=== PATIENT | female | born 1990 | race Caucasian/White ===

== ENCOUNTER 2017-05-18 19:59 | Emergency (ER) | payer OTHER ==
[~2017-05-18] VITALS: Ht 165.1 cm; Wt 59.9 kg
[~2017-05-18 19:59] MED LIST: DICY20TA3 PO; DOXY100T PO; FAMO-63 PO; ONDA4TAB12 PO; VENL37.5 PO
--- NOTE | 2017-05-18 20:24 | ED.ADGEN ---
Past History Past Medical History: Asthma, Depression, Ovarian Cyst, Other Past Surgical History: , Other Smoking: Cigarettes, Less than 1pk/day Alcohol Use: Occasionally Drug Use: None Adult General Chief Complaint Chief Complaint " I was at work and got this severe Rt. abd. pain.. I am about 6 weeks ... My 4th.. I have not seen my Dr. Rivers yet.. It s Dr. Wallis.."" I ve been having pain for while... but it got really bad after eating at 5 ( pm) today...' the pain really bad about 7 (1900).." HPI HPI Patient is a 26 year old female who presents with above hx and complaints of Rt. abd. Pain pain is reproducible with movement and rebound. Patient not yet on prenatals. No previous history of miscarriage. 3 previous C-sections. Patient did eat dinner tonight consistent with Pint Pleaseddar cheese noodles. Patient normally works at this [employer] post at [employer]. No history of previous STD. No history of vaginal discharge. Patient thinks her blood type is O+. Some complaints of dysuria. Has had 2 previous urinary tract infection. No change in stool s. No history of travel, trauma or specific ill contacts. Patient does smoke. Review of Systems Review of Systems Constitutional: Denies fever or chills [] Eyes: Denies change in visual acuity, redness, or eye pain [] HENT: Denies nasal congestion or sore throat [] Respiratory: Denies cough or shortness of breath [] Cardiovascular: No additional information not addressed in HPI [] GI: Complaints of abdominal pain, nausea, . Denies vomiting, bloody stools or diarrhea [] Rt. lower quadrant. : Denies dysuria or hematuria [] Musculoskeletal: Denies back pain or joint pain [] Integument: Denies rash or skin lesions [] Neurologic: Denies headache, focal weakness or sensory changes [] Endocrine: Denies polyuria or polydipsia [] Family History Family History Non- contributory Current Medications Current Medications Current Medications Medications (Trade) Dose Ordered Sig/Kirk Start Time Stop Time Status Last Admin Dose Admin Famotidine (Pepcid) 20 mg 1X ONCE 05/18/17 21:00 05/18/17 21:01 DC 05/18/17 21:55 20 MG Lactated Ringer's 1,000 ml @ 1,000 mls/hr Q1H 05/18/17 20:30 05/18/17 21:55 DC 05/18/17 21:53 1,000 MLS/HR Morphine Sulfate (Morphine 2mg Syringe) 2 mg STK-MED ONCE 05/18/17 22:45 05/18/17 22:46 DC Morphine Sulfate (Morphine 4mg Syringe) 4 mg 1X ONCE 05/18/17 23:00 05/18/17 23:01 DC 05/18/17 23:00 4 MG Ondansetron HCl (Zofran) 4 mg 1X ONCE 05/18/17 21:00 05/18/17 21:01 DC 05/18/17 21:54 4 MG See nursing for home meds Allergies Allergies Allergies Coded Allergies Type Severity Reaction Last Updated Verified No Known Drug Allergies 01/07/14 No Physical Exam Physical Exam Constitutional: Well developed, well nourished, in acute pain and emotional distress, non-toxic appearance. [] HENT: Normocephalic, atraumatic, bilateral external ears normal, oropharynx moist, no oral exudates, nose normal. [] Eyes: PERRLA, EOMI, conjunctiva normal, no discharge. [] Neck: Normal range of motion, no tenderness, supple, no stridor. [] Cardiovascular:Heart rate regular rhythm, no murmur [] Lungs & Thorax: Bilateral breath sounds clear to auscultation [] Abdomen: Bowel sounds decreased,, soft, right mid abdomen tenderness, no masses , no pulsatile masses. [] Umbilicus hernia , Mild psoas or obturator sign on RT. Old C- section scar. Vaginal- os close, no bleeding. Rt. adnexal tenderness. Skin: Warm, dry, no erythema, no rash. [] Back: No tenderness, no CVA tenderness. [] Extremities: No tenderness, no cyanosis, no clubbing, ROM intact, no edema. [] Bilateral psoas. Neurologic: Alert and oriented X 3, normal motor function, normal sensory function, no focal deficits noted. [] Psychologic: Affect tearful and anxious, judgement normal, mood depressed Current Patient Data Vital Signs Vital Signs Date Time Temp Pulse Resp B/P (MAP) Pulse Ox O2 Delivery O2 Flow Rate FiO2 05/18/17 23:00 98.1 104 20 143/84 (103) 100 Room Air Lab Results Laboratory Tests Test 05/18/17 20:15 05/18/17 20:34 05/18/17 20:45 Urine Collection Type Unknown Urine Color Straw Urine Clarity Hazy Urine pH 7.0 Urine Specific [place] 1.015 Urine Protein Neg (NEG-TRACE) Urine Glucose (UA) Neg mg/dL (NEG) Urine Ketones (Stick) Neg mg/dL (NEG) Urine Blood Trace (NEG) Urine Nitrite Neg (NEG) Urine Bilirubin Neg (NEG) Urine Urobilinogen Dipstick 0.2 mg/dL (0.2 mg/dL) Urine Leukocyte Esterase Neg (NEG) Urine RBC Rare /HPF (0-2) Urine WBC 0 /HPF (0-4) Urine Squamous Epithelial Cells Occ /LPF Urine Amorphous Sediment Present /HPF Urine Bacteria 0 /HPF (0-FEW) Urine Opiates Screen Neg (NEG) Urine Methadone Screen Neg (NEG) Urine Barbiturates Neg (NEG) Urine Phencyclidine Screen Neg (NEG) Urine Amphetamine/Methamphetamine Neg (NEG) Urine Benzodiazepines Screen Neg (NEG) Urine Cocaine Screen Neg (NEG) Urine Cannabinoids Screen Neg (NEG) Urine Ethyl Alcohol Neg (NEG) POC Urine HCG, Qualitative hcg positive (Negative) White Blood Count 8.1 x10^3/uL (4.0-11.0) Red Blood Count 3.75 x10^6/uL (3.50-5.40) Hemoglobin 11.5 g/dL (12.0-15.5) L Hematocrit 33.5 % (36.0-47.0) L Mean Corpuscular Volume 90 fL (79-100) Mean Corpuscular Hemoglobin 31 pg (25-35) Mean Corpuscular Hemoglobin Concent 34 g/dL (31-37) Red Cell Distribution Width 14.0 % (11.5-14.5) Platelet Count 252 x10^3/uL (140-400) Neutrophils (%) (Auto) 61 % (31-73) Lymphocytes (%) (Auto) 30 % (24-48) Monocytes (%) (Auto) 6 % (0-9) Eosinophils (%) (Auto) 2 % (0-3) Basophils (%) (Auto) 0 % (0-3) Neutrophils # (Auto) 5.0 x10^3uL (1.8-7.7) Lymphocytes # (Auto) 2.4 x10^3/uL (1.0-4.8) Monocytes # (Auto) 0.5 x10^3/uL (0.0-1.1) Eosinophils # (Auto) 0.2 x10^3/uL (0.0-0.7) Basophils # (Auto) 0.0 x10^3/uL (0.0-0.2) Prothrombin Time 12.0 SEC (9.4-11.4) H Prothrombin Time INR 1.2 (0.9-1.1) H PTT 26 SEC (23-33) Maternal Serum HCG Beta Subunit 7872 mIU/mL (0-6) H Sodium Level 138 mmol/L (136-145) Potassium Level 3.4 mmol/L (3.5-5.1) L Chloride Level 103 mmol/L (98-107) Carbon Dioxide Level 26 mmol/L (21-32) Anion Gap 9 (6-14) Blood Urea Nitrogen 14 mg/dL (7-20) Creatinine 0.7 mg/dL (0.6-1.0) Estimated GFR (Cockcroft-Gault) 101.1 BUN/Creatinine Ratio 20 (6-20) Glucose Level 96 mg/dL (70-99) Calcium Level 9.1 mg/dL (8.5-10.1) Total Bilirubin 0.3 mg/dL (0.2-1.0) Direct Bilirubin 0.1 mg/dL (0.0-0.2) Aspartate Amino Transferase (AST) 15 U/L (15-37) Alanine Aminotransferase (ALT) 19 U/L (14-59) Alkaline Phosphatase 71 U/L (46-116) Total Protein 7.5 g/dL (6.4-8.2) Albumin 3.9 g/dL (3.4-5.0) Albumin/Globulin Ratio 1.1 (1.0-1.7) Lipase 148 U/L (73-393) Microbiology 05/18/17 Wet Prep - Final, Complete Microbiology 05/18/17 Wet Prep - Final, Complete EKG EKG [] Radiology/Procedures Radiology/Procedures US - preliminary= fluid and debris and pelvis. No embryo gestational sac or intrauterine findings of appears to be in possible ruptured ectopic [] Course & Med Decision Making Course & Med Decision Making Pertinent Labs and Imaging studies reviewed. (See chart for details). Discussed presentation, testing with Dr. Bland- advised would not accept pt in transfer until seen in ED. Wants ED to ED transfer. Call placed to Dr. Moon ED [facility]- Advise will accept pt. pending Dr. Bland eval. Surgery team to be notified. Dr. Graf hospitalist will accept pt. for admit with Edwina consult. [] Final Impression Final Impression 1. Abdomen pain[]Rt. Lower Quadrant 2. Anemia 3. Suspected Ruptured Ectopic - 4. Elevated BHCG- 7,872- No IUP detected on US Problems: Dragon Disclaimer Dragon Disclaimer This electronic medical record was generated, in whole or in part, using a voice recognition dictation system. MED YAN MD May 18, 2017 20:24
[2017-05-18] MEDS ORDERED: MORPHINE SULFATE 2 MG/ML DISP.SYRIN. IV/SQ PRN (20:30)
[2017-05-18] MEDS ORDERED: IV RINGERS SOLUTION,LACTATED 1,000 ML IV SCH (20:30)
[2017-05-18 20:46] LABS: BARBITURATES NEG (NEG); BENZODIAZEPINES NEG (NEG); CANNABINOIDS NEG (NEG); COCAINE NEG (NEG); METHADONE NEG (NEG); OPIATES NEG (NEG); PHENCYCLIDINE NEG (NEG)
[2017-05-18 20:47] LABS: AMPHETAMINE/METHAMPHETAMINE NEG (NEG)
[2017-05-18 21:00] LABS: AMORPHOUS SEDIMENT,UR PRESENT /HPF; BACTERIA,URINE 0 /HPF (0-FEW); BILIRUBIN,URINE NEG (NEG); CLARITY,URINE HAZY; COLOR,URINE STRAW; GLUCOSE,URINE NEG (NEG); NITRITE,URINE NEG (NEG); RBC,URINE RARE /HPF (0-2); SQUAMOUS EPITHELIAL CELL,UR OCC /LPF; UROBILINOGEN,URINE 0.2 mg/dL (0.2 mg/dL); WBC,URINE 0 /HPF (0-4)
[2017-05-18] MEDS ORDERED: FAMOTIDINE 20 MG/2 ML VIAL IVP ONE (21:00)
[2017-05-18] MEDS ORDERED: ONDANSETRON PF 4 MG/2 ML VIAL. IV ONE (21:00)
[2017-05-18 21:08] LABS: BASO % 0 % (0-3); EOS # 0.2 x10^3/uL (0.0-0.7); EOS % 2 % (0-3); HEMATOCRIT 33.5 % (36.0-47.0); HEMOGLOBIN 11.5 g/dL (12.0-15.5); LYMPH # 2.4 x10^3/uL (1.0-4.8); LYMPH % 30 % (24-48); MEAN CORPUSCULAR HEMOGLOBIN 31 pg (25-35); MEAN CORPUSCULAR HGB CONC 34 g/dL (31-37); MEAN CORPUSCULAR VOLUME 90 fL (79-100); MONO # 0.5 x10^3/uL (0.0-1.1); MONO % 6 % (0-9); NEUT % 61 % (31-73); PLATELET COUNT 252 x10^3/uL (140-400); RED BLOOD COUNT 3.75 x10^6/uL (3.50-5.40); WHITE BLOOD COUNT 8.1 x10^3/uL (4.0-11.0)
[2017-05-18 21:23] LABS: ALBUMIN 3.9 g/dL (3.4-5.0); ALBUMIN/GLOBULIN RATIO 1.1 (1.0-1.7); CALCIUM 9.1 mg/dL (8.5-10.1); CREATININE 0.7 mg/dL (0.6-1.0); DIRECT BILIRUBIN 0.1 mg/dL (0.0-0.2); GFR 101.1; POTASSIUM 3.4 mmol/L (3.5-5.1); TOTAL BILIRUBIN 0.3 mg/dL (0.2-1.0); TOTAL PROTEIN 7.5 g/dL (6.4-8.2)
[2017-05-18] MEDS ORDERED: MORPHINE SULFATE 2 MG/ML DISP.SYRIN. ONE (22:45)
--- NOTE | 2017-05-18 22:45 | RAD ---
Complete abdominal ultrasound History: Abdominal pain, . Comparison: None. Procedure: Transabdominal ultrasound images are obtained. Findings: Visualized pancreas is unremarkable. Liver is normal in echogenicity. No focal hepatic masses are identified. Right lobe of the liver measures 14.9 cm. Gallbladder is without evidence of stone or inflammation. Gallbladder demonstrates small polyp measuring 4 mm. Common bile duct measures normally at 3 mm in diameter. Spleen is homogeneous and measures 10.1 cm in length. Right kidney measures 11.6 cm in length. Right kidney is without evidence of obstruction or stone. Left kidney measures 12.0 cm in length. Left kidney is without evidence of obstruction or stone. Visualized portions of the aorta and IVC have normal caliber. Impression: 1. Gallbladder polyp. Otherwise, unremarkable abdominal ultrasound. Electronically signed by: Raudel Murray MD (05/18/2017 10:42 PM) [facility]
--- NOTE | 2017-05-18 22:56 | RAD ---
Early OB ultrasound History: Abdominal pain. Beta hCG levels are not available at time of dictation. Comparison: None. Technique: Endovaginal imaging was performed . Findings: No intrauterine is identified. Uterus measures 9 cm in length. Endometrial thickness measures about 10 mm. The left ovary is identified demonstrates small follicle. Left ovary measures 4.2 x 2.4 x 3.9 cm. Left ovary demonstrates normal vascular flow upon Doppler interrogation is without distortion. There is a large amount of complex fluid in the pelvis, worrisome for hemorrhage. There appears to be a large focus of echogenic material asymmetric to the right hemipelvis, probably representing organized hemorrhage product. Constellation of findings are worrisome for ruptured ectopic . Impression: 1. Large amount of hemorrhage is seen in the pelvis with more organized hemorrhage product suspected in the right hemipelvis. Findings are very worrisome for ruptured ectopic . 2. Results were discussed with emergency department staff, Dr. Salcido, at 2252 hours. Electronically signed by: Raudel Murray MD (05/18/2017 10:53 PM) [facility]
[2017-05-18 23:00] VITALS: BP 143/84
[2017-05-18] MEDS ORDERED: MORPHINE SULFATE 4 MG/ML DISP.SYRIN. IV ONE (23:00)
[2017-05-21 14:13] LABS: HCV ANTIBODY <0.1 s/co ratio (0.0-0.9); HEP A IGM ABDY Negative (Negative)
[2017-05-22 18:09] LABS: CHLAMYDIA PROBE Negative (Negative)
== END 2017-05-18 23:39 | disposition short-term general hospital (02) ==
LOC: ER 19:59
DX: O26.892 Other specified pregnancy related conditions, second trimester (principal); R10.31 Right lower quadrant pain; O99.011 Anemia complicating pregnancy, first trimester; O99.511 Diseases of the respiratory system complicating pregnancy, first trimester; O99.341 Other mental disorders complicating pregnancy, first trimester; O99.331 Smoking (tobacco) complicating pregnancy, first trimester; J45.909 Unspecified asthma, uncomplicated; F32.9 Major depressive disorder, single episode, unspecified; Z98.890 Other specified postprocedural states; Z3A.01 Less than 8 weeks gestation of pregnancy
CPT/HCPCS: 36415; 76700; 76805; 76817; 80053; 80074; 80076; 80307; 81001; 81025; 83690; 84702; 85025; 85610; 85730; 86900; 86901; 96361; 96374; 96375; 96376; 99285; J2270; J2405; J7120; Q0111; S0028; 87491; 87591; G0479

== ENCOUNTER 2017-11-05 21:19 | Emergency (ER) | payer OTHER ==
[~2017-11-05] VITALS: Ht 165.1 cm; Wt 69.0 kg
[2017-11-05 22:54] LABS: BASO # 0.1 x10^3/uL (0.0-0.2); BASO % 1 % (0-3); EOS # 0.2 x10^3/uL (0.0-0.7); EOS % 3 % (0-3); HEMOGLOBIN 12.5 g/dL (12.0-15.5); LYMPH # 2.7 x10^3/uL (1.0-4.8); LYMPH % 33 % (24-48); MEAN CORPUSCULAR HEMOGLOBIN 28 pg (25-35); MEAN CORPUSCULAR HGB CONC 33 g/dL (31-37); MEAN CORPUSCULAR VOLUME 84 fL (79-100); MONO # 0.5 x10^3/uL (0.0-1.1); MONO % 6 % (0-9); NEUT # 4.7 x10^3uL (1.8-7.7); NEUT % 58 % (31-73); PLATELET COUNT 269 x10^3/uL (140-400); RED BLOOD COUNT 4.51 x10^6/uL (3.50-5.40); RED CELL DISTRIBUTION WIDTH 17.3 % (11.5-14.5); WHITE BLOOD COUNT 8.1 x10^3/uL (4.0-11.0)
[2017-11-05 23:07] LABS: PREG TEST PT QUAL NEGATIVE (NEG)
[2017-11-05 23:09] LABS: ALBUMIN 3.9 g/dL (3.4-5.0); CALCIUM 9.5 mg/dL (8.5-10.1); CREATININE 0.7 mg/dL (0.6-1.0); GFR 100.4; POTASSIUM 3.3 mmol/L (3.5-5.1); TOTAL BILIRUBIN 0.2 mg/dL (0.2-1.0); TOTAL PROTEIN 7.8 g/dL (6.4-8.2)
[2017-11-05 23:09] LABS: BACTERIA,URINE 0 /HPF (0-FEW); BILIRUBIN,URINE NEG (NEG); CLARITY,URINE CLEAR; COLOR,URINE YELLOW; GLUCOSE,URINE NEG (NEG); NITRITE,URINE NEG (NEG); RBC,URINE 0 /HPF (0-2); SQUAMOUS EPITHELIAL CELL,UR OCC /LPF; UROBILINOGEN,URINE 0.2 mg/dL (0.2 mg/dL); WBC,URINE RARE /HPF (0-4)
--- NOTE | 2017-11-05 23:40 | ED.ADGEN ---
Past History Past Medical History: Asthma, Depression, Ovarian Cyst, Other Past Surgical History: , Other Smoking: Cigarettes, Less than 1pk/day Alcohol Use: Occasionally Drug Use: None Adult General Chief Complaint Chief Complaint Abdominal pain HPI HPI Patient is a 27-year-old female presents with episodic daily abdominal pain for the past several weeks. Symptoms lasted 5-10 minutes at a time and are not associated with eating. Pain is described as dull colicky pain located in the periumbilical area which migrates below the diaphragms. Pain is not worse with position change, eating and resolves spontaneously. Patient currently reports dull and low-grade pain. Associated with mild nausea and no vomiting, reports normal bowel movements with occasional diarrhea and watery stools. Patient has been taken ibuprofen with limited relief. Does report history of umbilical hernia but states she can tell when it popped out. Also has had previous ovarian cysts and recent ectopic with right oophorectomy several months ago. Currently on Depo-Provera. No urinary frequency urgency, dysuria. No hematuria or flank pain. Evaluate twice by her PCP in the past month and prescribed antibiotics and I Mucinex and steroids. Completed steroids 2 weeks ago. Patient states she was treated for sinus infection and postnasal drip. Patient denies other symptoms or complaints.[] Review of Systems Review of Systems ROS as per HPI. All other ROS are negative [] All other systems were reviewed and found to be within normal limits, except as documented in this note. Allergies Allergies Allergies Coded Allergies Type Severity Reaction Last Updated Verified No Known Drug Allergies 01/07/14 No Physical Exam Physical Exam Constitutional: Well developed, well nourished, no acute distress, non-toxic appearance. [] HENT: Normocephalic, atraumatic, bilateral external ears normal, oropharynx moist, no oral exudates, nose normal. [] Eyes: PERRLA, EOMI, conjunctiva normal. [] Neck: Normal range of motion, no tenderness. [] Cardiovascular:Heart rate regular rhythm, no murmur. [] Lungs & Thorax: Bilateral breath sounds clear to auscultation. [] Abdomen: Bowel sounds normal, soft, no tenderness. [] Skin: Warm, dry. [] Back: No tenderness. [] Extremities: No tenderness. [] Neurologic: Alert and oriented X 3, normal motor function, normal sensory function, no focal deficits noted. [] Psychologic: Affect normal, judgement normal, mood normal. [] Current Patient Data Lab Results Laboratory Tests Test 11/05/17 21:47 11/05/17 22:25 11/05/17 22:35 POC Urine HCG, Qualitative hcg negative (Negative) Urine Collection Type Unknown Urine Color Yellow Urine Clarity Clear Urine pH 5.5 Urine Specific [place] 1.025 Urine Protein Trace (NEG-TRACE) Urine Glucose (UA) Neg mg/dL (NEG) Urine Ketones (Stick) Trace mg/dL (NEG) Urine Blood Neg (NEG) Urine Nitrite Neg (NEG) Urine Bilirubin Neg (NEG) Urine Urobilinogen Dipstick 0.2 mg/dL (0.2 mg/dL) Urine Leukocyte Esterase Neg (NEG) Urine RBC 0 /HPF (0-2) Urine WBC Rare /HPF (0-4) Urine Squamous Epithelial Cells Occ /LPF Urine Bacteria 0 /HPF (0-FEW) White Blood Count 8.1 x10^3/uL (4.0-11.0) Red Blood Count 4.51 x10^6/uL (3.50-5.40) Hemoglobin 12.5 g/dL (12.0-15.5) Hematocrit 38.0 % (36.0-47.0) Mean Corpuscular Volume 84 fL (79-100) Mean Corpuscular Hemoglobin 28 pg (25-35) Mean Corpuscular Hemoglobin Concent 33 g/dL (31-37) Red Cell Distribution Width 17.3 % (11.5-14.5) H Platelet Count 269 x10^3/uL (140-400) Neutrophils (%) (Auto) 58 % (31-73) Lymphocytes (%) (Auto) 33 % (24-48) Monocytes (%) (Auto) 6 % (0-9) Eosinophils (%) (Auto) 3 % (0-3) Basophils (%) (Auto) 1 % (0-3) Neutrophils # (Auto) 4.7 x10^3uL (1.8-7.7) Lymphocytes # (Auto) 2.7 x10^3/uL (1.0-4.8) Monocytes # (Auto) 0.5 x10^3/uL (0.0-1.1) Eosinophils # (Auto) 0.2 x10^3/uL (0.0-0.7) Basophils # (Auto) 0.1 x10^3/uL (0.0-0.2) Sodium Level 140 mmol/L (136-145) Potassium Level 3.3 mmol/L (3.5-5.1) L Chloride Level 104 mmol/L (98-107) Carbon Dioxide Level 23 mmol/L (21-32) Anion Gap 13 (6-14) Blood Urea Nitrogen 10 mg/dL (7-20) Creatinine 0.7 mg/dL (0.6-1.0) Estimated GFR (Cockcroft-Gault) 100.4 BUN/Creatinine Ratio 14 (6-20) Glucose Level 85 mg/dL (70-99) Calcium Level 9.5 mg/dL (8.5-10.1) Total Bilirubin 0.2 mg/dL (0.2-1.0) Aspartate Amino Transferase (AST) 16 U/L (15-37) Alanine Aminotransferase (ALT) 22 U/L (14-59) Alkaline Phosphatase 84 U/L (46-116) Total Protein 7.8 g/dL (6.4-8.2) Albumin 3.9 g/dL (3.4-5.0) Albumin/Globulin Ratio 1.0 (1.0-1.7) Serum Test, Qualitative Negative (NEG) EKG EKG [] Radiology/Procedures Radiology/Procedures [] Course & Med Decision Making Course & Med Decision Making Pertinent Labs and Imaging studies reviewed. (See chart for details) [Abdomen soft, nonsurgical. No palpable incarcerated hernias. Lab work reviewed and reassuring. We'll prescribe Bentyl recommend supportive care with PCP follow -up for further evaluation. Return precautions reviewed. Patient verbalizes understanding agreement discharge instructions prior to departure.] Final Impression Final Impression [1. Abdominal pain] Problems: Dragon Disclaimer Dragon Disclaimer This electronic medical record was generated, in whole or in part, using a voice recognition dictation system. MESHA GRANDE DO Nov 05, 2017 23:40
[2017-11-05 23:50] VITALS: BP 144/85
== END 2017-11-05 23:54 | disposition home or self-care (01) ==
LOC: ER 21:19
DX: R10.33 Periumbilical pain (principal); R19.7 Diarrhea, unspecified; J45.909 Unspecified asthma, uncomplicated; F32.9 Major depressive disorder, single episode, unspecified; F17.210 Nicotine dependence, cigarettes, uncomplicated; Z90.721 Acquired absence of ovaries, unilateral
CPT/HCPCS: 36415; 80053; 81001; 81025; 84703; 85025; 99284

== ENCOUNTER 2018-04-26 18:33 | Emergency (ER) | payer SELFPAY ==
[~2018-04-26] VITALS: Ht 165.1 cm; Wt 79.0 kg
[2018-04-26] MEDS ORDERED: HYDR-971 PO (19:21)
--- NOTE | 2018-04-26 19:21 | PHYS DOC ---
Past History Past Medical History: Asthma, Depression, Ovarian Cyst, Other Past Surgical History: , Other Smoking: Cigarettes, Less than 1pk/day Alcohol Use: Occasionally Drug Use: None Adult General Chief Complaint Chief Complaint: BACK PAIN OR INJURY HPI HPI Patient is a 27 year old female who presents with complaint of low back pain. The patient states that she has been suffering from recurrent low back pain over the past several weeks. The patient has been following with primary doctor and has been receiving outpatient treatments to help with symptoms. The patient states that she recently reinjured her low back over the past 3 days. Patient states that despite stim treatments and use of her home meds, Flexeril, and ibuprofen, she has not been able to get relief of her symptoms. Patient states that the pain radiates down into both of her legs. Patient denies any saddle anesthesia, loss of bladder or bowel control, or foot drop. Denies any other symptoms. Rates pain a 7 out of 10. Review of Systems Review of Systems Constitutional: Denies fever or chills [] Eyes: Denies change in visual acuity, redness, or eye pain [] HENT: Denies nasal congestion or sore throat [] Respiratory: Denies cough or shortness of breath [] Cardiovascular: Denies chest pain or edema[] GI: Denies abdominal pain, nausea, vomiting, bloody stools or diarrhea [] : Denies dysuria or hematuria [] Musculoskeletal: Back pain[] Integument: Denies rash or skin lesions [] Neurologic: Denies headache, focal weakness or sensory changes [] All other systems were reviewed and found to be within normal limits, except as documented in this note. Allergies Allergies Allergies Coded Allergies Type Severity Reaction Last Updated Verified No Known Drug Allergies 01/07/14 No Physical Exam Physical Exam Constitutional: Alert, afebrile, appears in mild discomfort. [] HENT: Normocephalic, atraumatic, bilateral external ears normal, oropharynx moist, no oral exudates, nose normal. [] Eyes: PERRLA, EOMI, conjunctiva normal, no discharge. [] Neck: Normal range of motion, no tenderness, supple, no stridor. [] Cardiovascular:Heart rate regular rhythm, no murmur [] Lungs & Thorax: Bilateral breath sounds clear to auscultation [] Abdomen: Bowel sounds normal, soft, no tenderness, no masses, no pulsatile masses. [] Skin: Warm, dry, no erythema, no rash. [] Back: No midline tenderness, bilateral lower lumbar paraspinous muscle tenderness to palpation, no flank ecchymosis. [] Extremities: No tenderness, no cyanosis, no clubbing, ROM intact, no edema. [] Neurologic: Alert and oriented X 3, normal motor function, normal sensory function, no focal deficits noted. [] Current Patient Data Lab Results Laboratory Tests Test 04/26/18 18:18 POC Urine HCG, Qualitative hcg negative (Negative) EKG EKG Not performed[] Radiology/Procedures Radiology/Procedures Not performed[] Course & Med Decision Making Course & Med Decision Making Pertinent Labs and Imaging studies reviewed. (See chart for details) Symptoms appear consistent with exacerbation of chronic low back pain. Patient treated with oral hydrocodone. The patient will be provided with a one-time small prescription of hydrocodone to help with breakthrough pain. Advised to follow-up with primary doctor for further evaluation. Recommended return to emergency department for any worsening symptoms. Patient was understanding and in agreement with treatment plan. Dragon Disclaimer Dragon Disclaimer This electronic medical record was generated, in whole or in part, using a voice recognition dictation system. Departure Departure: Impression: Primary Impression: Acute exacerbation of chronic low back pain Disposition: 01 HOME, SELF-CARE Condition: IMPROVED Referrals: ZACARIAS GIBBS MD (PCP) Patient Instructions: Chronic Back Pain Additional Instructions: Follow-up with your primary doctor in the next 3-5 days for reevaluation. Return to the emergency department for any worsening symptoms. Scripts Hydrocodone Bit/Acetaminophen (NORCO 5-325 TABLET) 1 Each Tablet 1-2 TAB PO Q4-6HRS PRN for PAIN, #20 TAB Prov: JANNET OLMBARDO MD 04/26/18 JANNET LOMBARDO MD Apr 26, 2018 19:21
[2018-04-26] MEDS ORDERED: HYDROcodone/APAP 5/325MG 1 TAB TABLET PO ONE (19:30)
[2018-04-26 19:40] VITALS: BP 142/84
== END 2018-04-26 19:42 | disposition home or self-care (01) ==
LOC: ER 18:33
DX: G89.29 Other chronic pain (principal); M54.5 Low back pain; J45.909 Unspecified asthma, uncomplicated; F17.210 Nicotine dependence, cigarettes, uncomplicated; Z98.890 Other specified postprocedural states
CPT/HCPCS: 81025; 99283

== ENCOUNTER → 2018-05-14 | Outpatient (CLI) | payer SELFPAY ==
[2018-04-26 19:40] VITALS: BP 142/84
[~2018-05-14] MED LIST changes: +HYDR-971 PO
[2018-05-14 09:03] LABS: BASO % 1 % (0-3); EOS # 0.3 x10^3/uL (0.0-0.7); EOS % 4 % (0-3); HEMATOCRIT 38.6 % (36.0-47.0); HEMOGLOBIN 13.3 g/dL (12.0-15.5); LYMPH # 2.1 x10^3/uL (1.0-4.8); LYMPH % 27 % (24-48); MEAN CORPUSCULAR HEMOGLOBIN 30 pg (25-35); MEAN CORPUSCULAR HGB CONC 35 g/dL (31-37); MEAN CORPUSCULAR VOLUME 88 fL (79-100); MONO # 0.4 x10^3/uL (0.0-1.1); MONO % 5 % (0-9); NEUT # 4.9 x10^3uL (1.8-7.7); NEUT % 63 % (31-73); PLATELET COUNT 265 x10^3/uL (140-400); RED BLOOD COUNT 4.37 x10^6/uL (3.50-5.40); RED CELL DISTRIBUTION WIDTH 15.2 % (11.5-14.5); WHITE BLOOD COUNT 7.7 x10^3/uL (4.0-11.0)
[2018-05-14 09:17] LABS: ALBUMIN 3.4 g/dL (3.4-5.0); ALBUMIN/GLOBULIN RATIO 0.8 (1.0-1.7); ALK PHOS 75 U/L (46-116); ALT (SGPT) 103 U/L (14-59); ANION GAP 9 (6-14); AST (SGOT) 35 U/L (15-37); BLOOD UREA NITROGEN 12 mg/dL (7-20); BUN/CREATININE RATIO 15 (6-20); CALCIUM 8.9 mg/dL (8.5-10.1); CARBON DIOXIDE 26 mmol/L (21-32); CHLORIDE 104 mmol/L (98-107); CREATININE 0.8 mg/dL (0.6-1.0); GLUCOSE 106 mg/dL (70-99); POTASSIUM 4.1 mmol/L (3.5-5.1); SODIUM 139 mmol/L (136-145); TOTAL BILIRUBIN 0.3 mg/dL (0.2-1.0); TOTAL PROTEIN 7.5 g/dL (6.4-8.2)
[2018-05-14 09:19] LABS: VAL ACID 42 mcg/mL (50-100)
[2018-05-14 13:32] LABS: FREE T4 0.74 ng/dL (0.76-1.46); THYROID STIM HORMONE (TSH) 1.567 uIU/mL (0.358-3.740)
== END | disposition home or self-care (01) ==
LOC: LAB 08:28
PROVIDERS: ATTEND Physician Assistant
DX: Z79.899 Other long term (current) drug therapy (principal)
CPT/HCPCS: 36415; 80053; 80061; 80164; 84439; 84443; 84480; 85025

== ENCOUNTER 2018-07-25 19:27 | Emergency (ER) | payer SELFPAY ==
[~2018-07-25 19:27] MED LIST changes: +HYDR-3165 PO; -HYDR-971 PO
--- NOTE | 2018-07-25 19:30 | ED.ADGEN ---
Past History Past Medical History: Asthma, Depression, Ovarian Cyst, Other Past Surgical History: , Other Smoking: Cigarettes, Less than 1pk/day Alcohol Use: Occasionally Drug Use: None Adult General Chief Complaint Chief Complaint ".. I ve been having diarrhea for two weeks all day long.. ".." Now I am getting cramping..." HPI HPI Patient is a 28 year old female who presents with above hx and complaints of abd. pain and severe cramping at times with multiple stools every day. Pt. denies travel, ill contacts, bad food, or contact with ill animals. Pt. normally healthy. Pt. localizes pain in lower pelvic and roslyn-umbilical. Stools have been brown and loose. Stools at least 4 to 5 per day. Pt. denies trauma. Denies fever and chills. Children did have some upper respiratory cold symptoms. Pt. has been having increased gas passage with stools. Review of Systems Review of Systems Constitutional: Denies fever or chills [] Eyes: Denies change in visual acuity, redness, or eye pain [] HENT: Denies nasal congestion or sore throat [] Respiratory: Denies cough or shortness of breath [] Cardiovascular: No additional information not addressed in HPI [] GI: Complaints of abdominal pain, nausea, and diarrhea [] : Denies dysuria or hematuria [] Musculoskeletal: Denies back pain or joint pain [] Integument: Denies rash or skin lesions [] Neurologic: Denies headache, focal weakness or sensory changes [] Endocrine: Denies polyuria or polydipsia [] All other systems were reviewed and found to be within normal limits, except as documented in this note. Family History Family History Non- contributory Current Medications Current Medications Current Medications Medications (Trade) Dose Ordered Sig/Kirk Start Time Stop Time Status Last Admin Dose Admin Acetaminophen/ Hydrocodone Bitart (Lortab 5/325) 1 tab STK-MED ONCE 07/25/18 20:05 07/25/18 20:07 DC Famotidine (Pepcid) 20 mg 1X ONCE 07/25/18 20:15 07/25/18 20:17 DC 07/25/18 20:13 20 MG Ondansetron HCl (Zofran Odt) 8 mg 1X ONCE 07/25/18 20:15 07/25/18 20:17 DC 07/25/18 20:12 8 MG Oxycodone/ Acetaminophen (Percocet 5/325) 2 tab 1X ONCE 07/25/18 20:15 07/25/18 20:17 DC 07/25/18 20:14 2 TAB Allergies Allergies Allergies Coded Allergies Type Severity Reaction Last Updated Verified No Known Drug Allergies 01/07/14 No Physical Exam Physical Exam Constitutional: Well developed, well nourished, no acute distress, non-toxic appearance. [] HENT: Normocephalic, atraumatic, bilateral external ears normal, oropharynx moist, no oral exudates, nose normal. [] Eyes: PERRLA, EOMI, conjunctiva normal, no discharge. [] Neck: Normal range of motion, no tenderness, supple, no stridor. [] Cardiovascular:Heart rate regular rhythm, no murmur [] Lungs & Thorax: Bilateral breath sounds equal apex with scattered wheezes on auscultation [] Abdomen: Bowel sounds hyperactive soft, lower pelvic tenderness, no masses, no pulsatile masses. No rebound. No psoas. Denies vaginal discharge. Declines rectal exam at this time or pelvic exam. Old and Rt. Ectopic preg. surgery scars. Skin: Warm, dry, no erythema, no rash. [] Back: No tenderness, no CVA tenderness. [] Extremities: No tenderness, no cyanosis, no clubbing, ROM intact, no edema. [] Neurologic: Alert and oriented X 3, normal motor function, normal sensory function, no focal deficits noted. [] Psychologic: Affect anxious, judgement normal, mood normal. [] Current Patient Data Vital Signs Vital Signs Date Time Temp Pulse Resp B/P (MAP) Pulse Ox O2 Delivery O2 Flow Rate FiO2 07/25/18 20:21 86 18 139/80 (99) 97 Room Air 07/25/18 19:35 98.3 Lab Results Laboratory Tests Test 07/25/18 19:48 07/25/18 19:58 Urine Collection Type Unknown Urine Color Yellow Urine Clarity Clear Urine pH 7.0 Urine Specific [place] 1.010 Urine Protein Neg (NEG-TRACE) Urine Glucose (UA) Neg mg/dL (NEG) Urine Ketones (Stick) Neg mg/dL (NEG) Urine Blood Trace (NEG) Urine Nitrite Neg (NEG) Urine Bilirubin Neg (NEG) Urine Urobilinogen Dipstick 0.2 mg/dL (0.2 mg/dL) Urine Leukocyte Esterase Neg (NEG) Urine RBC 1-2 /HPF (0-2) Urine WBC Occ /HPF (0-4) Urine Squamous Epithelial Cells Mod /LPF Urine Bacteria Few /HPF (0-FEW) Urine Opiates Screen Neg (NEG) Urine Methadone Screen Neg (NEG) Urine Barbiturates Neg (NEG) Urine Phencyclidine Screen Neg (NEG) Urine Amphetamine/Methamphetamine Neg (NEG) Urine Benzodiazepines Screen Neg (NEG) Urine Cocaine Screen Neg (NEG) Urine Cannabinoids Screen Neg (NEG) Urine Ethyl Alcohol Neg (NEG) POC Urine HCG, Qualitative hcg negative (Negative) EKG EKG [] Radiology/Procedures Radiology/Procedures [] Course & Med Decision Making Course & Med Decision Making Pertinent Labs and Imaging studies reviewed. (See chart for details) Clear fluid diet only. No solid or milk products x 48 hrs. Tylenol and Ibuprofen for pain. Pepto bismal for diarrhea episodes . Zofran for nausea. Re-exam if no improvement. Follow up culture s with primary. Must stay on clear fluid diet. Vicoprofen for marked discomfort. Must have re-exam if no improvement. [] Final Impression Final Impression 1. Abdomen Pain[] 2. Hx. of Diarrhea x 2 weeks Dragon Disclaimer Dragon Disclaimer This electronic medical record was generated, in whole or in part, using a voice recognition dictation system. Dragon Disclaimer This chart was dictated in whole or in part using Voice Recognition software in a busy, high-work load, and often noisy Emergency Department environment. It may contain unintended and wholly unrecognized errors or omissions. Discharge Summary Visit Information: Final Diagnosis Problems Medical Problems: (1) Diarrhea Status: Acute (2) Gastroenteritis Status: Acute (3) Pain in the abdomen Status: Acute Brief Hospital Course: Allergies: Allergies Coded Allergies Type Severity Reaction Last Updated Verified No Known Drug Allergies 01/07/14 No Vital Signs: Vital Signs Date Time Temp Pulse Resp B/P (MAP) Pulse Ox O2 Delivery O2 Flow Rate FiO2 07/25/18 20:21 86 18 139/80 (99) 97 Room Air 07/25/18 19:35 98.3 Lab Results: Laboratory Tests Test 07/25/18 19:48 07/25/18 19:58 Urine Collection Type Unknown Urine Color Yellow Urine Clarity Clear Urine pH 7.0 Urine Specific [place] 1.010 Urine Protein Neg (NEG-TRACE) Urine Glucose (UA) Neg mg/dL (NEG) Urine Ketones (Stick) Neg mg/dL (NEG) Urine Blood Trace (NEG) Urine Nitrite Neg (NEG) Urine Bilirubin Neg (NEG) Urine Urobilinogen Dipstick 0.2 mg/dL (0.2 mg/dL) Urine Leukocyte Esterase Neg (NEG) Urine RBC 1-2 /HPF (0-2) Urine WBC Occ /HPF (0-4) Urine Squamous Epithelial Cells Mod /LPF Urine Bacteria Few /HPF (0-FEW) Urine Opiates Screen Neg (NEG) Urine Methadone Screen Neg (NEG) Urine Barbiturates Neg (NEG) Urine Phencyclidine Screen Neg (NEG) Urine Amphetamine/Methamphetamine Neg (NEG) Urine Benzodiazepines Screen Neg (NEG) Urine Cocaine Screen Neg (NEG) Urine Cannabinoids Screen Neg (NEG) Urine Ethyl Alcohol Neg (NEG) Bedside Urine HCG, Qualitative hcg negative (Negative) PE: Gen.: Alert, pleasant, no apparent distress HEENT: Normocephalic atraumatic, PERRLA EOMI, no scleral icterus, oral mucosa pink and moist Neck: Supple, no lymphadenopathy, nontender Cardiovascular: Normal S1 and S2 no murmurs Pulmonary: Lungs are clear bilaterally with good air movement no respiratory distress Abdomen: Soft nontender non-distended, bowel sounds present no masses Extremities: No clubbing, cyanosis or edema Neuro: Alert and oriented 3, cranial nerves II through XII grossly intact, no lateralizing neuro deficits Skin: Warm, dry Brief Hospital Course: Ms. Roman is a 28 old [female] who presented with abd. pain and diarrhea Discharge Information: Condition at Discharge: Stable Disposition/Orders: D/C to Home Home Meds: Active Scripts Ondansetron Hcl (ZOFRAN) 8 Mg Tablet, 8 MG PO QIDPRN PRN for NAUSEA/VOMITING, # 30 TAB Prov:MED YAN MD 07/25/18 Hydrocodone/Ibuprofen (HYDROCODONE-IBUPROFEN 7.5-200 ) 1 Each Tablet, 1 TAB PO PRN Q6HRS PRN for PAIN, #30 TAB 0 Refills Prov:MED YAN MD 07/25/18 Hydrocodone Bit/Acetaminophen (NORCO 5-325 TABLET) 1 Each Tablet, 1-2 TAB PO Q4- 6HRS PRN for PAIN, #20 TAB Prov:JANNET LOMBARDO MD 04/26/18 Dicyclomine Hcl (DICYCLOMINE HCL) 20 Mg Tablet, 1 TAB PO QID PRN for abdominal cramps, nausea, #20 TAB Prov:AYAD SALGUERO MD 05/23/15 Doxycycline Hyclate (DOXYCYCLINE HYCLATE) 100 Mg Tablet, 1 TAB PO BID, #14 TAB Prov:AYAD SALGUERO MD 05/23/15 Ondansetron (ONDANSETRON ODT) 4 Mg Tab.rapdis, 4 MG PO Q6-8HRS PRN for NAUSEA, # 14 TAB Prov:AYAD SALGUERO MD 05/23/15 Ondansetron (ONDANSETRON ODT) 4 Mg Tab.rapdis, 4 MG PO Q8HRS PRN for nausea, vomiting, #14 TAB Prov:AYAD SALGUERO MD 09/11/14 Famotidine (PEPCID) 20 Mg Tablet, 20 MG PO BID, #20 TAB Prov:AYAD SALGUERO MD 09/11/14 Reported Medications Venlafaxine Hcl (EFFEXOR XR) 37.5 Mg Cap.er.24h, 37.5 MG PO 04/16/15 MED YAN MD Jul 25, 2018 19:30
[2018-07-25] MEDS ORDERED: HYDROcodone/APAP 5/325MG 1 TAB TABLET ONE (20:05)
[2018-07-25] MEDS ORDERED: HYDR-1179 PO (20:08)
[2018-07-25] MEDS ORDERED: ONDA8TAB9 PO (20:08)
[2018-07-25] MEDS ORDERED: oxyCODONE/APAP 5/325 1 TAB TABLET PO ONE (20:15)
[2018-07-25] MEDS ORDERED: ONDANSETRON ODT 4 MG TAB.RAPDIS PO ONE (20:15)
[2018-07-25] MEDS ORDERED: FAMOTIDINE 20 MG TABLET PO ONE (20:15)
[2018-07-25 20:17] LABS: BILIRUBIN,URINE NEG (NEG); CLARITY,URINE CLEAR; COLOR,URINE YELLOW; GLUCOSE,URINE NEG (NEG)
[2018-07-25 20:18] LABS: BACTERIA,URINE FEW /HPF (0-FEW); NITRITE,URINE NEG (NEG); SQUAMOUS EPITHELIAL CELL,UR MOD /LPF; UROBILINOGEN,URINE 0.2 mg/dL (0.2 mg/dL); WBC,URINE OCC /HPF (0-4)
[2018-07-25 20:21] VITALS: BP 139/80
[2018-07-25 20:48] LABS: BARBITURATES NEG (NEG); BENZODIAZEPINES NEG (NEG); CANNABINOIDS NEG (NEG); COCAINE NEG (NEG); METHADONE NEG (NEG); OPIATES NEG (NEG); PHENCYCLIDINE NEG (NEG)
[2018-07-25 20:49] LABS: AMPHETAMINE/METHAMPHETAMINE NEG (NEG)
== END 2018-07-25 20:24 | disposition home or self-care (01) ==
LOC: ER 19:27
DX: K52.9 Noninfective gastroenteritis and colitis, unspecified (principal); J45.909 Unspecified asthma, uncomplicated; F17.210 Nicotine dependence, cigarettes, uncomplicated; Z98.890 Other specified postprocedural states
CPT/HCPCS: 36415; 80307; 81001; 81025; 99284; Q0162

== ENCOUNTER 2018-08-31 16:06 | Emergency (ER) | payer SELFPAY ==
[~2018-08-31] VITALS: Ht 165.1 cm; Wt 95.0 kg
[~2018-08-31 16:06] MED LIST changes: +HYDR-1179 PO; +ONDA8TAB9 PO
[2018-08-31 16:19] VITALS: BP 139/76
[2018-08-31 16:52] LABS: BILIRUBIN,URINE NEG (NEG); CLARITY,URINE CLEAR; COLOR,URINE STRAW; GLUCOSE,URINE NEG (NEG); NITRITE,URINE NEG (NEG); UROBILINOGEN,URINE 0.2 mg/dL (0.2 mg/dL)
--- NOTE | 2018-08-31 17:05 | PHYS DOC ---
Past History Past Medical History: Anxiety, Bipolar, Depression Past Surgical History: No Surgical History, Smoking: Cigarettes, Less than 1pk/day Alcohol Use: None Drug Use: None Adult General Chief Complaint Chief Complaint: ABDOMINAL PAIN HPI HPI Patient is a 28 year old female patient with history of bipolar disorder and frequent emergency room visits present with complaining of abdominal pains intermittently for one month. Patient complaining of abdominal pain in different areas of the abdomen for the last one month that comes and goes. Patient also complaining of dry heaves for the last 2 days. Patient complaining of burning during urination recently and denies fever and chills, diarrhea and constipation, vaginal bleeding. Patient states her menstruation started in early July and there is possibility for . Review of Systems Review of Systems Constitutional: Denies fever or chills [] Eyes: Denies change in visual acuity, redness, or eye pain [] HENT: Denies nasal congestion or sore throat [] Respiratory: Denies cough or shortness of breath [] Cardiovascular: No additional information not addressed in HPI [] GI: Reports abdominal pain, nausea, denies vomiting, bloody stools or diarrhea [ ] : Reports dysuria, denies hematuria Musculoskeletal: Denies back pain or joint pain [] Integument: Denies rash or skin lesions [] Neurologic: Denies headache, focal weakness or sensory changes [] Endocrine: Denies polyuria or polydipsia [] All other systems were reviewed and found to be within normal limits, except as documented in this note. Current Medications Current Medications Current Medications Medications (Trade) Dose Ordered Sig/Kirk Start Time Stop Time Status Last Admin Dose Admin Ketorolac Tromethamine (Toradol Im) 60 mg 1X ONCE 08/31/18 17:15 08/31/18 17:16 Ondansetron HCl (Zofran Odt) 4 mg 1X ONCE 08/31/18 17:15 08/31/18 17:16 Allergies Allergies Allergies Coded Allergies Type Severity Reaction Last Updated Verified No Known Drug Allergies 01/07/14 No Physical Exam Physical Exam Constitutional: Well nourished, mild distress, non-toxic appearance. [] HENT: Normocephalic, atraumatic, oropharynx moist. [] Eyes: PERRLA, EOMI, conjunctiva normal, no discharge. [] Neck: Normal range of motion, no tenderness, supple, no stridor. [] Cardiovascular:Heart rate regular rhythm, no murmur [] Lungs & Thorax: Bilateral breath sounds clear to auscultation [] Abdomen: Bowel sounds normal, soft, no tenderness, no masses, no pulsatile masses. [] Skin: Warm, dry, no erythema, no rash. [] Back: No tenderness, no CVA tenderness. [] Extremities: No tenderness, no cyanosis, no clubbing, ROM intact, no edema. [] Neurologic: Alert and oriented X 3, normal motor function, normal sensory function, no focal deficits noted. [] Psychologic: Affect anxious, judgement normal, mood normal. [] Current Patient Data Vital Signs Vital Signs Date Time Temp Pulse Resp B/P (MAP) Pulse Ox O2 Delivery O2 Flow Rate FiO2 08/31/18 16:19 98.7 70 20 97 Room Air Lab Results Laboratory Tests Test 08/31/18 16:11 08/31/18 16:36 Urine Collection Type Unknown Urine Color Straw Urine Clarity Clear Urine pH 6.5 Urine Specific [place] <=1.005 Urine Protein Neg (NEG-TRACE) Urine Glucose (UA) Neg mg/dL (NEG) Urine Ketones (Stick) Neg mg/dL (NEG) Urine Blood Trace (NEG) Urine Nitrite Neg (NEG) Urine Bilirubin Neg (NEG) Urine Urobilinogen Dipstick 0.2 mg/dL (0.2 mg/dL) Urine Leukocyte Esterase Neg (NEG) POC Urine HCG, Qualitative hcg negative (Negative) EKG EKG [] Radiology/Procedures Radiology/Procedures [] Course & Med Decision Making Course & Med Decision Making Pertinent Labs reviewed. (See chart for details) Evaluation of patient in ER showed 28-year-old male patient complaining of chronic abdominal pain. Patient had unremarkable physical exam except for anxiety. UA and urine test was negative. Patient treated with Zofran and Toradol and felt better. Patient was advised to follow-up with her primary care physician for evaluation of chronic abdominal pain. Dragon Disclaimer Dragon Disclaimer This electronic medical record was generated, in whole or in part, using a voice recognition dictation system. Departure Departure: Disposition: 01 HOME, SELF-CARE (at 1714) Condition: STABLE Referrals: ZACARIAS GIBBS MD (PCP) Patient Instructions: Abdominal Pain, Chronic Pain, Nausea, Adult, Smoking Cessation, Tips For Success Additional Instructions: Drink plenty of liquids Follow-up with your primary care physician in 3-5 days for chronic abdominal pain Return to ER if not getting better Scripts Ondansetron Hcl (ZOFRAN) 4 Mg Tablet 1 TAB PO Q6HRS for nausea and vomiting, #12 TAB Prov: ELLA GUIDO MD 08/31/18 Naproxen (NAPROSYN) 500 Mg Tablet 500 MG PO BID for pain, #20 TAB Prov: ELLA GUIDO MD 08/31/18 ELLA GUIDO MD Aug 31, 2018 17:05
[2018-08-31] MEDS ORDERED: KETOROLAC 60 MG/2 ML VIAL. IM ONE (17:15)
[2018-08-31] MEDS ORDERED: ONDANSETRON ODT 4 MG TAB.RAPDIS PO ONE (17:15)
[2018-08-31] MEDS ORDERED: NAPR-683 PO (17:17)
[2018-08-31] MEDS ORDERED: ONDA4TAB7 PO (17:17)
== END 2018-08-31 17:30 | disposition home or self-care (01) ==
LOC: ER 16:06
DX: G89.29 Other chronic pain (principal); R10.84 Generalized abdominal pain; R30.0 Dysuria; R11.0 Nausea; F41.9 Anxiety disorder, unspecified; F31.9 Bipolar disorder, unspecified; F17.210 Nicotine dependence, cigarettes, uncomplicated; Z98.890 Other specified postprocedural states
CPT/HCPCS: 81003; 81025; 96372; 99283; J1885; Q0162

== ENCOUNTER 2018-09-05 12:13 | Emergency (ER) | payer SELFPAY ==
[~2018-09-05] VITALS: Ht 172.7 cm; Wt 113.4 kg
[~2018-09-05 12:13] MED LIST changes: +NAPR-683 PO; +ONDA4TAB7 PO
[2018-09-05] MEDS ORDERED: ONDANSETRON PF 4 MG/2 ML VIAL. IV ONE (13:00)
[2018-09-05] MEDS ORDERED: KETOROLAC 30 MG/ML VIAL. IV ONE (13:00)
[2018-09-05] MEDS ORDERED: IV NORMAL SALINE 1,000ML 1,000 ML IV SCH (13:00)
[2018-09-05 13:25] LABS: BASO # 0.1 x10^3/uL (0.0-0.2); BASO % 1 % (0-3); EOS # 0.1 x10^3/uL (0.0-0.7); EOS % 1 % (0-3); HEMATOCRIT 40.5 % (36.0-47.0); HEMOGLOBIN 13.9 g/dL (12.0-15.5); LYMPH # 1.4 x10^3/uL (1.0-4.8); LYMPH % 19 % (24-48); MEAN CORPUSCULAR HEMOGLOBIN 31 pg (25-35); MEAN CORPUSCULAR HGB CONC 34 g/dL (31-37); MEAN CORPUSCULAR VOLUME 92 fL (79-100); MONO # 0.5 x10^3/uL (0.0-1.1); MONO % 6 % (0-9); NEUT # 5.5 x10^3uL (1.8-7.7); NEUT % 73 % (31-73); PLATELET COUNT 227 x10^3/uL (140-400); RED BLOOD COUNT 4.42 x10^6/uL (3.50-5.40); RED CELL DISTRIBUTION WIDTH 14.1 % (11.5-14.5); WHITE BLOOD COUNT 7.6 x10^3/uL (4.0-11.0)
[2018-09-05 13:30] LABS: AMPHETAMINE/METHAMPHETAMINE NEG (NEG); BARBITURATES NEG (NEG); BENZODIAZEPINES NEG (NEG); CANNABINOIDS NEG (NEG); COCAINE NEG (NEG); METHADONE NEG (NEG); OPIATES NEG (NEG); PHENCYCLIDINE NEG (NEG)
[2018-09-05 13:33] LABS: ALBUMIN 3.8 g/dL (3.4-5.0); ALBUMIN/GLOBULIN RATIO 0.9 (1.0-1.7); CALCIUM 9.1 mg/dL (8.5-10.1); CREATININE 0.8 mg/dL (0.6-1.0); GFR 85.4; POTASSIUM 3.9 mmol/L (3.5-5.1); TOTAL BILIRUBIN 0.3 mg/dL (0.2-1.0)
[2018-09-05 13:39] LABS: BACTERIA,URINE 0 /HPF (0-FEW); BILIRUBIN,URINE NEG (NEG); CLARITY,URINE HAZY; COLOR,URINE STRAW; GLUCOSE,URINE NEG (NEG); NITRITE,URINE NEG (NEG); RBC,URINE RARE /HPF (0-2); SQUAMOUS EPITHELIAL CELL,UR OCC /LPF; UROBILINOGEN,URINE 0.2 mg/dL (0.2 mg/dL); WBC,URINE 0 /HPF (0-4)
--- NOTE | 2018-09-05 13:50 | RAD ---
Examination: Ultrasound abdomen limited HISTORY: History of pain COMPARISON: 05/18/2017 FINDINGS: The pancreas is not well-visualized due to bowel gas. The visualized IVC is within normal limits of dimension. The right kidney measures 11.5 cm in length. No evidence of gallstones identified. The previously visualized polyp identified in the gallbladder is not clearly visualized on today's examination. There is increased echogenicity noted throughout the liver likely hepatic steatosis. The right lobe of the liver measures 19.9 cm. The common bile duct measures 4.8 mm in transverse dimension. IMPRESSION: 1. Hepatomegaly with hepatic steatosis. 2. No evidence of gallstones. Electronically signed by: Vazquez Ron MD (09/05/2018 1:45 PM) [id number]
--- NOTE | 2018-09-05 13:54 | PHYS DOC ---
Past History Past Medical History: Anxiety, Bipolar, Depression Past Surgical History: No Surgical History, Smoking: Cigarettes, Less than 1pk/day Alcohol Use: None Drug Use: None Adult General Chief Complaint Chief Complaint: NAUSEA/VOMITING/DIARRHEA HPI HPI Patient is a 28-year-old female who presents with complaint of upper abdominal pain with nausea and vomiting. Patient states symptoms have been going on for the last few days and states that she has had other episodes very similar to this one. Patient states that she was seen here previously for the symptoms and about 2 weeks ago was also seen over at [facility]. Patient denies any fever. She also denies any diarrhea. Patient does indicate that she had been prescribed Bentyl for IBS but states that she was not able to get the Bentyl filled. Review of Systems Review of Systems Constitutional: Denies fever or chills [] HENT: Denies nasal congestion or sore throat [] Respiratory: Denies cough or shortness of breath [] Cardiovascular: No additional information not addressed in HPI [] GI: Complains of upper abdominal pain with nausea and vomiting. Denies diarrhea [] Neurologic: Denies headache, focal weakness or sensory changes [] All other systems were reviewed and found to be within normal limits, except as documented in this note. Current Medications Current Medications Current Medications Medications (Trade) Dose Ordered Sig/[facility] Start Time Stop Time Status Last Admin Dose Admin Ketorolac Tromethamine (Toradol 30mg Vial) 30 mg 1X ONCE 09/05/18 13:00 09/05/18 13:01 DC 09/05/18 13:44 30 MG Ondansetron HCl (Zofran) 4 mg 1X ONCE 09/05/18 13:00 09/05/18 13:01 DC 09/05/18 13:44 4 MG Sodium Chloride 1,000 ml @ 1,000 mls/hr Q1H 09/05/18 13:00 09/05/18 13:59 09/05/18 13:44 1,000 MLS/HR Allergies Allergies Allergies Coded Allergies Type Severity Reaction Last Updated Verified No Known Drug Allergies 01/07/14 No Physical Exam Physical Exam Constitutional: Well developed, well nourished, no acute distress, non-toxic appearance. [] HENT: Normocephalic, atraumatic, bilateral external ears normal, oropharynx moist, no oral exudates, nose normal. [] Eyes: PERRLA, EOMI, conjunctiva normal, no discharge. [] Neck: Normal range of motion, no tenderness, supple, no stridor. [] Cardiovascular: Regular rate and rhythm [] Lungs & Thorax: Bilateral breath sounds clear to auscultation [] Abdomen: Bowel sounds normal, soft, with epigastric and right upper quadrant tenderness. [] Skin: Warm, dry, no erythema, no rash. [] Extremities: No tenderness, no cyanosis, no clubbing, ROM intact, no edema. [] Neurologic: Alert and oriented X 3, no focal deficits noted. [] Current Patient Data Vital Signs Vital Signs Date Time Temp Pulse Resp B/P (MAP) Pulse Ox O2 Delivery O2 Flow Rate FiO2 09/05/18 12:39 98.3 85 22 99 Room Air Lab Results Laboratory Tests Test 09/05/18 13:00 09/05/18 13:16 White Blood Count 7.6 x10^3/uL (4.0-11.0) Red Blood Count 4.42 x10^6/uL (3.50-5.40) Hemoglobin 13.9 g/dL (12.0-15.5) Hematocrit 40.5 % (36.0-47.0) Mean Corpuscular Volume 92 fL (79-100) Mean Corpuscular Hemoglobin 31 pg (25-35) Mean Corpuscular Hemoglobin Concent 34 g/dL (31-37) Red Cell Distribution Width 14.1 % (11.5-14.5) Platelet Count 227 x10^3/uL (140-400) Neutrophils (%) (Auto) 73 % (31-73) Lymphocytes (%) (Auto) 19 % (24-48) L Monocytes (%) (Auto) 6 % (0-9) Eosinophils (%) (Auto) 1 % (0-3) Basophils (%) (Auto) 1 % (0-3) Neutrophils # (Auto) 5.5 x10^3uL (1.8-7.7) Lymphocytes # (Auto) 1.4 x10^3/uL (1.0-4.8) Monocytes # (Auto) 0.5 x10^3/uL (0.0-1.1) Eosinophils # (Auto) 0.1 x10^3/uL (0.0-0.7) Basophils # (Auto) 0.1 x10^3/uL (0.0-0.2) Urine Collection Type Unknown Urine Color Straw Urine Clarity Hazy Urine pH 7.0 Urine Specific [place] 1.010 Urine Protein Neg (NEG-TRACE) Urine Glucose (UA) Neg mg/dL (NEG) Urine Ketones (Stick) Neg mg/dL (NEG) Urine Blood Mod (NEG) Urine Nitrite Neg (NEG) Urine Bilirubin Neg (NEG) Urine Urobilinogen Dipstick 0.2 mg/dL (0.2 mg/dL) Urine Leukocyte Esterase Neg (NEG) Urine RBC Rare /HPF (0-2) Urine WBC 0 /HPF (0-4) Urine Squamous Epithelial Cells Occ /LPF Urine Bacteria 0 /HPF (0-FEW) Sodium Level 139 mmol/L (136-145) Potassium Level 3.9 mmol/L (3.5-5.1) Chloride Level 102 mmol/L (98-107) Carbon Dioxide Level 26 mmol/L (21-32) Anion Gap 11 (6-14) Blood Urea Nitrogen 8 mg/dL (7-20) Creatinine 0.8 mg/dL (0.6-1.0) Estimated GFR (Cockcroft-Gault) 85.4 BUN/Creatinine Ratio 10 (6-20) Glucose Level 92 mg/dL (70-99) Calcium Level 9.1 mg/dL (8.5-10.1) Total Bilirubin 0.3 mg/dL (0.2-1.0) Aspartate Amino Transferase (AST) 90 U/L (15-37) H Alanine Aminotransferase (ALT) 139 U/L (14-59) H Alkaline Phosphatase 82 U/L (46-116) Total Protein 8.0 g/dL (6.4-8.2) Albumin 3.8 g/dL (3.4-5.0) Albumin/Globulin Ratio 0.9 (1.0-1.7) L Lipase 143 U/L (73-393) Urine Opiates Screen Neg (NEG) Urine Methadone Screen Neg (NEG) Urine Barbiturates Neg (NEG) Urine Phencyclidine Screen Neg (NEG) Urine Amphetamine/Methamphetamine Neg (NEG) Urine Benzodiazepines Screen Neg (NEG) Urine Cocaine Screen Neg (NEG) Urine Cannabinoids Screen Neg (NEG) Urine Ethyl Alcohol Neg (NEG) POC Urine HCG, Qualitative hcg negative (Negative) EKG EKG [] Radiology/Procedures Radiology/Procedures [] Impressions: PROCEDURE: ABDOMEN LTD Examination: Ultrasound abdomen limited HISTORY: History of pain COMPARISON: 05/18/2017 FINDINGS: The pancreas is not well-visualized due to bowel gas. The visualized IVC is within normal limits of dimension. The right kidney measures 11.5 cm in length. No evidence of gallstones identified. The previously visualized polyp identified in the gallbladder is not clearly visualized on today's examination. There is increased echogenicity noted throughout the liver likely hepatic steatosis. The right lobe of the liver measures 19.9 cm. The common bile duct measures 4.8 mm in transverse dimension. IMPRESSION: 1. Hepatomegaly with hepatic steatosis. 2. No evidence of gallstones. Electronically signed by: Vazquez Ron MD (09/05/2018 1:45 PM) [id number] Course & Med Decision Making Course & Med Decision Making Pertinent Labs and Imaging studies reviewed. (See chart for details) [] Dragon Disclaimer Dragon Disclaimer This electronic medical record was generated, in whole or in part, using a voice recognition dictation system. Departure Departure: Impression: Primary Impression: Upper abdominal pain Disposition: HOME, SELF-CARE Condition: STABLE Referrals: ZACARIAS GIBBS MD (PCP) Patient Instructions: Abdominal Pain Scripts Tramadol Hcl (TRAMADOL HCL) 50 Mg Tablet 50 MG PO PRN Q6HRS PRN for PAIN, #12 TAB Prov: JUANITA PARMAR Jr. DO 09/05/18 Ondansetron Hcl (ZOFRAN) 4 Mg Tablet 1 TAB PO Q8HRS PRN for NAUSEA, #12 TAB Prov: JUANITA PARMAR Jr. DO 09/05/18 Hyoscyamine Sulfate (LEVSIN) 0.125 Mg Tablet 1 TAB PO TID PRN for abdominal cramping, #15 TAB Prov: JUANITA PARMAR Jr. DO 09/05/18 JUANITA PARMAR Jr. DO Sep 05, 2018 13:54
[2018-09-05] MEDS ORDERED: HYOS0.1264 PO (14:40)
[2018-09-05] MEDS ORDERED: ONDA4TAB7 PO (14:40)
[2018-09-05] MEDS ORDERED: TRAM50TA PO (14:40)
[2018-09-05 14:55] VITALS: BP 147/89
== END 2018-09-05 14:59 | disposition home or self-care (01) ==
LOC: ER 12:13
DX: R10.11 Right upper quadrant pain (principal); R10.13 Epigastric pain; R11.2 Nausea with vomiting, unspecified; K76.0 Fatty (change of) liver, not elsewhere classified; F17.210 Nicotine dependence, cigarettes, uncomplicated; Z98.890 Other specified postprocedural states
CPT/HCPCS: 36415; 76705; 80053; 80307; 81001; 81025; 83690; 85025; 96361; 96374; 96375; 99284; J1885; J2405; J7030

== ENCOUNTER 2018-11-16 13:25 | Emergency (ER) | payer SELFPAY ==
[~2018-11-16] VITALS: Ht 172.7 cm; Wt 95.0 kg
[~2018-11-16 13:25] MED LIST changes: +HYOS0.1264 PO; +TRAM50TA PO
--- NOTE | 2018-11-16 14:26 | PHYS DOC ---
Past History Past Medical History: Anxiety, Bipolar, Depression Past Surgical History: No Surgical History, Smoking: Cigarettes, Less than 1pk/day Alcohol Use: None Drug Use: None Adult General Chief Complaint Chief Complaint: ABDOMINAL PAIN [facility] HPI 28-year-old female presents with epigastric abdominal pain. The patient has had intermittent pain in this area for some time. It has been getting worse lately. Last couple of days it seems like it comes and goes would've her watch. It's worse when she first wakes up and around bedtime. He does seem to make it worse. He comes on without warning and slowly fades after a couple of hours. Denies vomiting or diarrhea. She does have some mild nausea. Denies fever or chills. Review of Systems Review of Systems Constitutional: Denies fever or chills [] Eyes: Denies change in visual acuity, redness, or eye pain [] HENT: Denies nasal congestion or sore throat [] Respiratory: Denies cough or shortness of breath [] Cardiovascular: No additional information not addressed in HPI [] GI: Epigastric abdominal pain, nausea. Denies vomiting, bloody stools or diarrhea [] : Denies dysuria or hematuria [] Musculoskeletal: Denies back pain or joint pain [] Integument: Denies rash or skin lesions [] Neurologic: Denies headache, focal weakness or sensory changes [] Endocrine: Denies polyuria or polydipsia [] All other systems were reviewed and found to be within normal limits, except as documented in this note. Allergies Allergies Allergies Coded Allergies Type Severity Reaction Last Updated Verified No Known Drug Allergies 01/07/14 No Physical Exam Physical Exam Constitutional: Well developed, obese, well nourished, no acute distress, non- toxic appearance. [] HENT: Normocephalic, atraumatic, bilateral external ears normal, oropharynx moist, no oral exudates, nose normal. [] Eyes: PERRLA, EOMI, conjunctiva normal, no discharge. [] Neck: Normal range of motion, no tenderness, supple, no stridor. [] Cardiovascular:Heart rate regular rhythm, no murmur [] Lungs & Thorax: Bilateral breath sounds clear to auscultation [] Abdomen: Bowel sounds normal, soft, epigastric tenderness, no masses, no pulsatile masses. [] Skin: Warm, dry, no erythema, no rash. [] Back: No tenderness, no CVA tenderness. [] Extremities: No tenderness, no cyanosis, no clubbing, ROM intact, no edema. [] Neurologic: Alert and oriented X 3, normal motor function, normal sensory function, no focal deficits noted. [] Psychologic: Affect normal, judgement normal, mood normal. [] Current Patient Data Vital Signs Vital Signs Date Time Temp Pulse Resp B/P (MAP) Pulse Ox O2 Delivery O2 Flow Rate FiO2 11/16/18 13:51 Room Air 11/16/18 13:51 98.3 120 20 Lab Results Laboratory Tests Test 11/16/18 13:52 POC Urine HCG, Qualitative hcg negative (Negative) EKG EKG [] Radiology/Procedures Radiology/Procedures [] Course & Med Decision Making Course & Med Decision Making Pertinent Labs and Imaging studies reviewed. (See chart for details) Patient's labs are unremarkable. Her gallbladder ultrasound shows mild fatty liver, but no other significant findings. I have encouraged patient to follow with her PCP if the pain continues. I will discharge her with a short course of Campbell 5/325. [] Dragon Disclaimer Dragon Disclaimer This electronic medical record was generated, in whole or in part, using a voice recognition dictation system. Departure Departure: Impression: Primary Impression: Epigastric abdominal pain Disposition: 01 HOME, SELF-CARE Condition: STABLE Referrals: PAOLO LYONS DO (PCP) Patient Instructions: Abdominal Pain (Nonspecific) Scripts Hydrocodone Bit/Acetaminophen (NORCO 5-325 TABLET) 1 Each Tablet 1 TAB PO PRN Q6HRS PRN for PAIN, #10 TAB 0 Refills Prov: MESHA DIXON DO 11/16/18 MESHA DIXON DO Nov 16, 2018 14:26
[2018-11-16] MEDS ORDERED: FAMOTIDINE 20 MG/2 ML VIAL IVP ONE (14:30)
[2018-11-16 14:44] LABS: BACTERIA,URINE 0 /HPF (0-FEW); BILIRUBIN,URINE NEG (NEG); CLARITY,URINE CLEAR; COLOR,URINE STRAW; GLUCOSE,URINE NEG (NEG); NITRITE,URINE NEG (NEG); RBC,URINE 0 /HPF (0-2); SQUAMOUS EPITHELIAL CELL,UR OCC /LPF; UROBILINOGEN,URINE 0.2 mg/dL (0.2 mg/dL); WBC,URINE 0 /HPF (0-4)
[2018-11-16 15:26] LABS: ALBUMIN 3.3 g/dL (3.4-5.0); ALBUMIN/GLOBULIN RATIO 0.8 (1.0-1.7); CALCIUM 8.8 mg/dL (8.5-10.1); CREATININE 0.8 mg/dL (0.6-1.0); GFR 85.4; POTASSIUM 3.7 mmol/L (3.5-5.1); TOTAL BILIRUBIN 0.2 mg/dL (0.2-1.0); TOTAL PROTEIN 7.5 g/dL (6.4-8.2)
[2018-11-16 15:30] LABS: BASO # 0.1 x10^3/uL (0.0-0.2); BASO % 1 % (0-3); EOS # 0.2 x10^3/uL (0.0-0.7); EOS % 2 % (0-3); HEMATOCRIT 37.8 % (36.0-47.0); HEMOGLOBIN 13.1 g/dL (12.0-15.5); LYMPH # 2.2 x10^3/uL (1.0-4.8); LYMPH % 23 % (24-48); MEAN CORPUSCULAR HEMOGLOBIN 31 pg (25-35); MEAN CORPUSCULAR HGB CONC 35 g/dL (31-37); MEAN CORPUSCULAR VOLUME 91 fL (79-100); MONO # 0.5 x10^3/uL (0.0-1.1); MONO % 5 % (0-9); NEUT # 6.6 x10^3uL (1.8-7.7); NEUT % 69 % (31-73); PLATELET COUNT 228 x10^3/uL (140-400); RED BLOOD COUNT 4.17 x10^6/uL (3.50-5.40); RED CELL DISTRIBUTION WIDTH 13.5 % (11.5-14.5); WHITE BLOOD COUNT 9.6 x10^3/uL (4.0-11.0)
[2018-11-16] MEDS ORDERED: KETOROLAC 30 MG/ML VIAL. ONE (15:54)
[2018-11-16] MEDS ORDERED: KETOROLAC 30 MG/ML VIAL. IV ONE (16:00)
[2018-11-16] MEDS ORDERED: MORPHINE SULFATE 4 MG/ML DISP.SYRIN. IV ONE (17:15)
[2018-11-16] MEDS ORDERED: HYDR-3165 PO (17:29)
[2018-11-16 17:45] VITALS: BP 159/100
--- NOTE | 2018-11-16 17:45 | RAD ---
Abdominal ultrasound dated 11/16/2018. No comparison available. CLINICAL INDICATION: Abdominal pain. FINDINGS: Liver appears enlarged and there is diffuse increased echogenicity throughout the liver substance. No apparent mass. Biliary tree normal in caliber. Common bile duct measures 2 mm. Gallbladder is contracted and not well evaluated. No shadowing stone or pericholecystic fluid. Right kidney measures 11.7 cm in length without hydronephrosis. Left kidney was not imaged. Limited visualized portions of pancreas aorta and IVC unremarkable. No significant ascites. IMPRESSION: 1. No acute sonographic abnormality. 2. Hepatomegaly and hepatic steatosis. Electronically signed by: Raudel Hdez MD (11/16/2018 5:41 PM) [facility]
== END 2018-11-16 17:41 | disposition home or self-care (01) ==
LOC: ER 13:25
DX: R10.13 Epigastric pain (principal); F41.9 Anxiety disorder, unspecified; F31.9 Bipolar disorder, unspecified; F17.210 Nicotine dependence, cigarettes, uncomplicated; Z98.890 Other specified postprocedural states
CPT/HCPCS: 36415; 76705; 80053; 81001; 81025; 83690; 85025; 96374; 96375; 99285; J1885; J2270; J3490

== ENCOUNTER 2018-12-12 16:33 | Emergency (ER) | payer SELFPAY ==
[2018-12-12] MEDS ORDERED: ORPH-16 PO (16:53)
[2018-12-12] MEDS ORDERED: DICL50TA4 PO (16:53)
--- NOTE | 2018-12-12 16:53 | PHYS DOC ---
Past History Past Medical History: Anxiety, Bipolar, Depression Past Surgical History: No Surgical History, Smoking: Cigarettes, Less than 1pk/day Alcohol Use: None Drug Use: None Adult General Chief Complaint Chief Complaint: BACK PAIN - NO INJURY [facility] HPI Patient is a 28-year-old female who presents with complaint of lower back pain that has been present since at least April of last year. Patient states that pain waxes and wanes and she has been seen by her primary care provider in a few times for this and has had trials with different medications as well as massage and electrical stimulation, none of which have worked. Patient rates pain to be a 7 out of 10. She states this pain radiates down both legs. She denies any loss of bowel or bladder control and has no saddle anesthesia. Review of Systems Review of Systems Constitutional: Denies fever or chills [] Respiratory: Denies cough or shortness of breath [] Cardiovascular: No additional information not addressed in HPI [] GI: Denies abdominal pain, nausea, vomiting or diarrhea [] : Denies dysuria or hematuria [] Musculoskeletal: Complains of lower back pain [] Neurologic: Denies headache, focal weakness or sensory changes [] Allergies Allergies Allergies Coded Allergies Type Severity Reaction Last Updated Verified No Known Drug Allergies 01/07/14 No Physical Exam Physical Exam Constitutional: Well developed, well nourished, no acute distress, non-toxic appearance. [] Neck: Normal range of motion, no tenderness, supple, no stridor. [] Cardiovascular:Heart rate regular rhythm, no murmur [] Lungs & Thorax: Bilateral breath sounds clear to auscultation [] Back: Patient reports tenderness to palpation around the bilateral lower lumbar paraspinal musculature. No palpable spasm is noted.. [] Extremities: No tenderness, no cyanosis, no clubbing, ROM intact, no edema. [] EKG EKG [] Radiology/Procedures Radiology/Procedures [] Course & Med Decision Making Course & Med Decision Making Pertinent Labs and Imaging studies reviewed. (See chart for details) [] Dragon Disclaimer Dragon Disclaimer This electronic medical record was generated, in whole or in part, using a voice recognition dictation system. Departure Departure: Impression: Primary Impression: Chronic low back pain Disposition: 01 HOME, SELF-CARE Condition: STABLE Referrals: ZACARIAS GIBBS MD (PCP) Patient Instructions: Chronic Back Pain Scripts Orphenadrine Citrate (ORPHENADRINE CITRATE) 100 Mg Tablet.er 1 TAB PO BID PRN for MUSCLE SPASMS, #20 TAB Prov: JUANITA PARMAR Jr. DO 12/12/18 Diclofenac Sodium (DICLOFENAC SODIUM) 50 Mg Tablet.dr 1 TAB PO BID PRN for PAIN, #20 TAB Prov: JUANITA PARMAR Jr. DO 12/12/18 Problem Qualifiers Primary Impression: Chronic low back pain Back pain laterality: unspecified Sciatica presence: unspecified whether sciatica present Qualified Codes: M54.5 - Low back pain; G89.29 - Other chronic pain JUANITA PARMAR Jr. DO December 12, 2018 16:53
[2018-12-12 16:56] VITALS: BP 145/94
== END 2018-12-12 17:02 | disposition home or self-care (01) ==
LOC: ER 16:33
DX: G89.29 Other chronic pain (principal); M54.5 Low back pain; F41.9 Anxiety disorder, unspecified; F31.9 Bipolar disorder, unspecified; F17.210 Nicotine dependence, cigarettes, uncomplicated; Z98.890 Other specified postprocedural states
CPT/HCPCS: 99283

== ENCOUNTER 2019-01-19 11:40 | Emergency (ER) | payer SELFPAY ==
[~2019-01-19] VITALS: Ht 172.7 cm; Wt 95.0 kg
[2019-01-19 11:40] VITALS: BP 125/102
[~2019-01-19 11:40] MED LIST changes: +DICL50TA4 PO; +ORPH-16 PO
[2019-01-19] MEDS ORDERED: traMADol 50 MG TABLET PO ONE (12:45)
[2019-01-19] MEDS ORDERED: TRAM50TA PO (12:46)
--- NOTE | 2019-01-19 12:46 | PHYS DOC ---
Past History Past Medical History: Anxiety, Bipolar, Depression Past Surgical History: Smoking: Cigarettes, Less than 1pk/day Alcohol Use: None Drug Use: None Adult General Chief Complaint Chief Complaint: BACK PAIN OR [facility]URY HPI HPI 28-year-old female presents with right-sided lumbar pain with radiculopathy. The patient has had problems with this area for several weeks. She is seeing a doctor for injections. Her last injection was 2 days ago. It did not help at all this time. The patient has not gone to her primary care physician because she does not have insurance and does not have the money to go. She is hoping to start a new job that will provide insurance very soon. Her pain radiates down the lateral aspect of the right leg to the knee. She denies fever or chills. She's had no new trauma Review of Systems Review of Systems Constitutional: Denies fever or chills [] Eyes: Denies change in visual acuity, redness, or eye pain [] HENT: Denies nasal congestion or sore throat [] Respiratory: Denies cough or shortness of breath [] Cardiovascular: No additional information not addressed in HPI [] GI: Denies abdominal pain, nausea, vomiting, bloody stools or diarrhea [] : Denies dysuria or hematuria [] Musculoskeletal: Right low back pain[] Integument: Denies rash or skin lesions [] Neurologic: Denies headache, focal weakness or sensory changes [] Endocrine: Denies polyuria or polydipsia [] All other systems were reviewed and found to be within normal limits, except as documented in this note. Allergies Allergies Allergies Coded Allergies Type Severity Reaction Last Updated Verified No Known Drug Allergies 01/07/14 No Physical Exam Physical Exam Constitutional: Well developed, obese, well nourished, no acute distress, non- toxic appearance. [] HENT: Normocephalic, atraumatic, bilateral external ears normal, oropharynx moist, no oral exudates, nose normal. [] Eyes: PERRLA, EOMI, conjunctiva normal, no discharge. [] Neck: Normal range of motion, no tenderness, supple, no stridor. [] Cardiovascular:Heart rate regular rhythm, no murmur [] Lungs & Thorax: Bilateral breath sounds clear to auscultation [] Abdomen: Bowel sounds normal, soft, no tenderness, no masses, no pulsatile masses. [] Skin: Warm, dry, no erythema, no rash. [] Back: Pain with movement on the right lower back.[] Extremities: No tenderness, no cyanosis, no clubbing, ROM intact, no edema. [] Neurologic: Alert and oriented X 3, normal motor function, normal sensory function, no focal deficits noted. [] Psychologic: Affect normal, judgement normal, mood normal. [] Current Patient Data Vital Signs Vital Signs Date Time Temp Pulse Resp B/P (MAP) Pulse Ox O2 Delivery O2 Flow Rate FiO2 01/19/19 11:40 Room Air 01/19/19 11:40 98.3 94 20 100 Lab Results Laboratory Tests Test 01/19/19 12:21 POC Urine HCG, Qualitative hcg negative (Negative) EKG EKG [] Radiology/Procedures Radiology/Procedures [] Course & Med Decision Making Course & Med Decision Making Pertinent Labs and Imaging studies reviewed. (See chart for details) Imaging is not indicated at this time. I reviewed the control substance database and the patient has had a few prescriptions from this facility recently for similar complaint. I explained to the patient this would be the last time we are able to use that. She will have to work on her insurance situation and go back to her primary care physician if she needs continued pain medication. I told her that this is the last prescription that would be able to be provided from this emergency room and probably any other emergency room. She stated verbal understanding. I will give her a short course of tramadol 50 mg tabs. She is stable for discharge at this time. [] Dragon Disclaimer Dragon Disclaimer This electronic medical record was generated, in whole or in part, using a voice recognition dictation system. Departure Departure: Impression: Primary Impression: Lumbar back pain Disposition: HOME, SELF-CARE Condition: STABLE Referrals: PAOLO LYONS DO (PCP) Patient Instructions: Back Pain, Adult Scripts Tramadol Hcl (TRAMADOL HCL) 50 Mg Tablet 50 MG PO PRN Q6HRS PRN for PAIN, #14 TAB Prov: MESHA DIXON DO 01/19/19 MESHA DIXON DO Jan 19, 2019 12:46
== END 2019-01-19 12:54 | disposition home or self-care (01) ==
LOC: ER 11:40
DX: M54.5 Low back pain (principal); F41.9 Anxiety disorder, unspecified; F31.9 Bipolar disorder, unspecified; F17.210 Nicotine dependence, cigarettes, uncomplicated
CPT/HCPCS: 81025; 99283

== ENCOUNTER 2019-03-02 14:21 | Emergency (ER) | payer SELFPAY ==
[~2019-03-02] VITALS: Ht 166.4 cm; Wt 94.3 kg
[2019-03-02] MEDS ORDERED: IV NORMAL SALINE 1,000ML 1,000 ML IV SCH (15:39)
--- NOTE | 2019-03-02 15:43 | PHYS DOC ---
Past History Past Medical History: IBS, Other Past Surgical History: , Tubal ligation, Other Smoking: Cigarettes, Less than 1pk/day Alcohol Use: None Drug Use: Marijuana Social History Narrative: no recent use Adult General Chief Complaint Chief Complaint: ABDOMINAL PAIN HPI HPI Patient is a 28-year-old female presents with upper abdominal pain, cramping, and diarrhea. This is been present for the past 3 weeks and she has been seeing her primary care physician due to irritable bowel syndrome. It became worse again today. No blood in the stool. Patient reports a 4 pound weight loss in the past 2 days. No blood in the stool. No recent travel. No relief with the medicines that have been prescribed to include Zofran and Bentyl and Levsin.[] Review of Systems Review of Systems Constitutional: Denies fever or chills [] Eyes: Denies change in visual acuity, redness, or eye pain [] HENT: Denies nasal congestion or sore throat [] Respiratory: Denies cough or shortness of breath [] Cardiovascular: No chest pain or palpitations[] GI: See history of present illness[] : Denies dysuria or hematuria [] Musculoskeletal: Denies back pain or joint pain [] Integument: Denies rash or skin lesions [] Neurologic: Denies headache, focal weakness or sensory changes [] Endocrine: Denies polyuria or polydipsia [] All other systems were reviewed and found to be within normal limits, except as documented in this note. Allergies Allergies Allergies Coded Allergies Type Severity Reaction Last Updated Verified No Known Drug Allergies 01/07/14 No Physical Exam Physical Exam Constitutional: Well developed, well nourished, no acute distress, non-toxic appearance. [] HENT: Normocephalic, atraumatic, bilateral external ears normal, oropharynx moist, no oral exudates, nose normal. [] Eyes: PERRLA, EOMI, conjunctiva normal, no discharge. [] Neck: Normal range of motion, no tenderness, supple, no stridor. [] Cardiovascular:Heart rate regular rhythm, no murmur [] Lungs & Thorax: Bilateral breath sounds clear to auscultation [] Abdomen: Bowel sounds normal, soft, midline upper abdominal tenderness, no rebound, no guarding, no rigidity, no masses, no pulsatile masses. [] Skin: Warm, dry, no erythema, no rash. [] Back: No tenderness, no CVA tenderness. [] Extremities: No tenderness, no cyanosis, no clubbing, ROM intact, no edema. [] Neurologic: Alert and oriented X 3, normal motor function, normal sensory function, no focal deficits noted. [] Psychologic: Affect normal, judgement normal, mood normal. [] Current Patient Data Vital Signs Vital Signs Date Time Temp Pulse Resp B/P (MAP) Pulse Ox O2 Delivery O2 Flow Rate FiO2 03/02/19 14:31 97.9 100 18 98 Room Air EKG EKG [] Radiology/Procedures Radiology/Procedures [] Course & Med Decision Making Course & Med Decision Making Pertinent Labs and Imaging studies reviewed. (See chart for details) ED course: Patient arrived, was placed in bed, and tolerated exam well. IV access was established, she was started on IV fluids. As well as given antiemetics, anti-spasmodics, and pain medicine. These didn't improve her discomfort. After the return of the Loy Nguyen studies, these were discussed with patient and her partner who voiced understanding. All questions were answered. She was discharged in improved condition. Medical decision making: Patient with a history of irritable bowel syndrome with the diarrheal variant, who has been having symptoms for the past several weeks. There is no evidence of significant electrolyte abnormality, no evidence of intractable pain. Will start her on one of the new or medicines to help with these symptoms. Stressed the importance of follow-up with her primary care team.[] Dragon Disclaimer Dragon Disclaimer This electronic medical record was generated, in whole or in part, using a voice recognition dictation system. Departure Departure: Impression: Primary Impression: Irritable bowel disease Disposition: 01 HOME, SELF-CARE Condition: IMPROVED Referrals: PAOLO LYONS DO (PCP) Follow-up in 2 days Patient Instructions: Diet and Irritable Bowel Syndrome, Irritable Bowel Syndrome Additional Instructions: Follow-up with your regular doctor in 2 days. Return to the ER if worsening discomfort, unable to tolerate liquids, or any other concerns. Scripts Tramadol Hcl (TRAMADOL HCL) 50 Mg Tablet 50 MG PO PRN Q6HRS PRN for PAIN, #20 TAB Prov: ELIZABETH REDMAN DO 03/02/19 Eluxadoline (Viberzi) 100 Mg Tablet 100 MG PO BID for IBS-D for 10 Days, #20 TAB Prov: ELIZABETH REDMAN DO 03/02/19 Problem Qualifiers Primary Impression: Irritable bowel disease Irritable bowel syndrome type: with diarrhea Qualified Codes: K58.0 - Irritable bowel syndrome with diarrhea ELIZABETH REDMAN DO Mar 02, 2019 15:43
[2019-03-02] MEDS ORDERED: PROCHLORPERAZINE 10 MG/2 ML VIAL. IV ONE (15:45)
[2019-03-02] MEDS ORDERED: FAMOTIDINE 20 MG/2 ML VIAL IVP ONE (15:45)
[2019-03-02] MEDS ORDERED: DICYCLOMINE 20 MG/2 ML AMPUL. IM ONE (16:00)
[2019-03-02 16:10] LABS: BASO % 0 % (0-3); EOS # 0.3 x10^3/uL (0.0-0.7); EOS % 2 % (0-3); HEMATOCRIT 44.4 % (36.0-47.0); HEMOGLOBIN 14.9 g/dL (12.0-15.5); LYMPH # 3.2 x10^3/uL (1.0-4.8); LYMPH % 30 % (24-48); MEAN CORPUSCULAR HEMOGLOBIN 31 pg (25-35); MEAN CORPUSCULAR HGB CONC 34 g/dL (31-37); MEAN CORPUSCULAR VOLUME 92 fL (79-100); MONO # 0.5 x10^3/uL (0.0-1.1); MONO % 4 % (0-9); NEUT # 6.8 x10^3uL (1.8-7.7); NEUT % 63 % (31-73); PLATELET COUNT 285 x10^3/uL (140-400); RED BLOOD COUNT 4.83 x10^6/uL (3.50-5.40); RED CELL DISTRIBUTION WIDTH 13.8 % (11.5-14.5); WHITE BLOOD COUNT 10.8 x10^3/uL (4.0-11.0)
[2019-03-02 16:21] LABS: PREG TEST PT QUAL NEGATIVE (NEG)
[2019-03-02 16:24] LABS: ALBUMIN 4.2 g/dL (3.4-5.0); ALBUMIN/GLOBULIN RATIO 0.9 (1.0-1.7); CALCIUM 9.8 mg/dL (8.5-10.1); CREATININE 0.8 mg/dL (0.6-1.0); GFR 85.4; POTASSIUM 3.9 mmol/L (3.5-5.1); TOTAL BILIRUBIN 0.3 mg/dL (0.2-1.0); TOTAL PROTEIN 8.8 g/dL (6.4-8.2)
[2019-03-02 16:38] LABS: BACTERIA,URINE FEW /HPF (0-FEW); BILIRUBIN,URINE NEG (NEG); CLARITY,URINE CLEAR; COLOR,URINE STRAW; GLUCOSE,URINE NEG (NEG); NITRITE,URINE NEG (NEG); RBC,URINE RARE /HPF (0-2); SQUAMOUS EPITHELIAL CELL,UR OCC /LPF; UROBILINOGEN,URINE 0.2 mg/dL (0.2 mg/dL); WBC,URINE OCC /HPF (0-4)
[2019-03-02] MEDS ORDERED: ELUX100T PO (17:00)
[2019-03-02] MEDS ORDERED: TRAM50TA PO (17:00)
[2019-03-02 17:15] VITALS: BP 142/104
[2019-03-02] MEDS ORDERED: traMADol 50 MG TABLET PO ONE (17:15)
== END 2019-03-02 17:25 | disposition home or self-care (01) ==
LOC: ER 14:21
DX: K58.9 Irritable bowel syndrome, unspecified (principal); R19.7 Diarrhea, unspecified; F17.210 Nicotine dependence, cigarettes, uncomplicated; Z98.890 Other specified postprocedural states; Z98.51 Tubal ligation status
CPT/HCPCS: 36415; 80053; 81001; 83690; 84703; 85025; 96361; 96372; 96374; 96375; 99285; J0500; J0780; J3490; J7030

== ENCOUNTER 2019-03-11 10:29 | Emergency (ER) | payer SELFPAY ==
[~2019-03-11] VITALS: Ht 166.4 cm; Wt 96.7 kg
[~2019-03-11 10:29] MED LIST changes: +ELUX100T PO
[2019-03-11] MEDS ORDERED: traMADol 50 MG TABLET PO ONE (11:00)
[2019-03-11 11:04] LABS: BASO % 0 % (0-3); EOS # 0.2 x10^3/uL (0.0-0.7); EOS % 2 % (0-3); HEMATOCRIT 40.8 % (36.0-47.0); HEMOGLOBIN 13.9 g/dL (12.0-15.5); LYMPH # 2.6 x10^3/uL (1.0-4.8); LYMPH % 25 % (24-48); MEAN CORPUSCULAR HEMOGLOBIN 31 pg (25-35); MEAN CORPUSCULAR HGB CONC 34 g/dL (31-37); MEAN CORPUSCULAR VOLUME 91 fL (79-100); MONO # 0.4 x10^3/uL (0.0-1.1); MONO % 4 % (0-9); NEUT # 6.9 x10^3uL (1.8-7.7); NEUT % 68 % (31-73); PLATELET COUNT 250 x10^3/uL (140-400); RED BLOOD COUNT 4.48 x10^6/uL (3.50-5.40); RED CELL DISTRIBUTION WIDTH 13.7 % (11.5-14.5); WHITE BLOOD COUNT 10.1 x10^3/uL (4.0-11.0)
--- NOTE | 2019-03-11 11:08 | PHYS DOC ---
Past History Past Medical History: Hypertension, IBS Past Surgical History: , Tubal ligation Smoking: Cigarettes, Less than 1pk/day Alcohol Use: None Drug Use: Marijuana Adult General Chief Complaint Chief Complaint: ABDOMINAL PAIN HPI HPI 28-year-old female returns emergency room with epigastric abdominal pain. The patient has had a history of epigastric abdominal pain over some time. We have seen her for similar complaint multiple times in this emergency room. Today, the patient tells me she was diagnosed with irritable bowel disease 9 days ago. She has been taking the medications that she was prescribed and recommended. She is still having epigastric pain. She has not really noticing in association with when she eats or when she doesn't. The pain will be persistent for several hours or even a few days and then a well not her for a while and it seems to come back. She has recently had 2-3 days of diarrhea, but had a normal bowel movement today. She also admits the urge to urinate, but it is difficult to urinate. It is not painful. She denies fever or chills. She does not drink alcohol. She's had no other medication changes since her visit on March 02. She has never had a HIDA scan. She has had gallbladder ultrasounds are reported to be negative. Review of Systems Review of Systems Constitutional: Denies fever or chills [] Eyes: Denies change in visual acuity, redness, or eye pain [] HENT: Denies nasal congestion or sore throat [] Respiratory: Denies cough or shortness of breath [] Cardiovascular: No additional information not addressed in HPI [] GI: Epigastric abdominal pain, nausea, diarrhea [] : Denies dysuria or hematuria [] Musculoskeletal: Denies back pain or joint pain [] Integument: Denies rash or skin lesions [] Neurologic: Denies headache, focal weakness or sensory changes [] Endocrine: Denies polyuria or polydipsia [] All other systems were reviewed and found to be within normal limits, except as documented in this note. Current Medications Current Medications Current Medications Medications (Trade) Dose Ordered Sig/Kirk Start Time Stop Time Status Last Admin Dose Admin Tramadol HCl (Ultram) 100 mg 1X ONCE 03/11/19 11:00 03/11/19 11:01 UNV Allergies Allergies Allergies Coded Allergies Type Severity Reaction Last Updated Verified No Known Drug Allergies 01/07/14 No Physical Exam Physical Exam Constitutional: Well developed, obese, well nourished, no acute distress, non- toxic appearance. [] HENT: Normocephalic, atraumatic, bilateral external ears normal, oropharynx moist, no oral exudates, nose normal. [] Eyes: PERRLA, EOMI, conjunctiva normal, no discharge. [] Neck: Normal range of motion, no tenderness, supple, no stridor. [] Cardiovascular:Heart rate regular rhythm, no murmur [] Lungs & Thorax: Bilateral breath sounds clear to auscultation [] Abdomen: Bowel sounds normal, soft, epigastric abdominal tenderness, no masses, no pulsatile masses. [] Skin: Warm, dry, no erythema, no rash. [] Back: No tenderness, no CVA tenderness. [] Extremities: No tenderness, no cyanosis, no clubbing, ROM intact, no edema. [] Neurologic: Alert and oriented X 3, normal motor function, normal sensory function, no focal deficits noted. [] Psychologic: Affect somewhat flat, judgement normal, mood normal. [] Current Patient Data Vital Signs Vital Signs Date Time Temp Pulse Resp B/P (MAP) Pulse Ox O2 Delivery O2 Flow Rate FiO2 03/11/19 10:36 98.1 100 18 97 Room Air EKG EKG [] Radiology/Procedures Radiology/Procedures [] Impressions: AP view of the abdomen Clinical indications: Epigastric abdominal pain. FINDINGS: Mild fecal retention of the colon and rectosigmoid region is seen. No dilatation of colon or small bowel is evident. No radiopaque renal stone is evident. Small calcified phlebolith of the right side of the anatomic pelvis is seen. The osseous structures are intact. IMPRESSION: No acute radiographic abnormality. Electronically signed by: Funmilayo Gan MD (03/11/2019 11:27 AM) [id number] DICTATED AND SIGNED BY: FUNMILAYO GAN MD DATE: 03/11/19 1127 CC: MESHA DIXON DO; PAOLO LYONS DO ~ Course & Med Decision Making Course & Med Decision Making Pertinent Labs and Imaging studies reviewed. (See chart for details) The patient's abdominal films are unremarkable. Her labs show elevation of her liver enzymes. She has had elevations before. They are higher today than previous. A recent ultrasound from 11/16/18 shows hepatomegaly and hepatic steatosis. I believe the patient needs to see a GI specialist for further evaluation. I recommended this to her. She will discuss this with her PCP. She is stable for discharge at this time. [] Dragon Disclaimer Dragon Disclaimer This electronic medical record was generated, in whole or in part, using a voice recognition dictation system. Departure Departure: Impression: Primary Impression: Epigastric abdominal pain Additional Impression: Elevated liver enzymes Disposition: HOME, SELF-CARE Condition: STABLE Referrals: PAOLO LYONS DO (PCP) Patient Instructions: Abdominal Pain, [id number] Problem Qualifiers MESHA DIXON DO Mar 11, 2019 11:08
[2019-03-11 11:13] LABS: ALBUMIN 3.8 g/dL (3.4-5.0); ALBUMIN/GLOBULIN RATIO 0.9 (1.0-1.7); CALCIUM 9.4 mg/dL (8.5-10.1); CREATININE 0.9 mg/dL (0.6-1.0); GFR 74.6; POTASSIUM 4.4 mmol/L (3.5-5.1); TOTAL BILIRUBIN 0.3 mg/dL (0.2-1.0); TOTAL PROTEIN 8.2 g/dL (6.4-8.2)
--- NOTE | 2019-03-11 11:30 | RAD ---
AP view of the abdomen Clinical indications: Epigastric abdominal pain. FINDINGS: Mild fecal retention of the colon and rectosigmoid region is seen. No dilatation of colon or small bowel is evident. No radiopaque renal stone is evident. Small calcified phlebolith of the right side of the anatomic pelvis is seen. The osseous structures are intact. IMPRESSION: No acute radiographic abnormality. Electronically signed by: Robert Gan MD (03/11/2019 11:27 AM) [id number]
[2019-03-11 11:38] LABS: BACTERIA,URINE 0 /HPF (0-FEW); BILIRUBIN,URINE NEG (NEG); CLARITY,URINE HAZY; COLOR,URINE YELLOW; GLUCOSE,URINE 100 mg/dL (NEG); NITRITE,URINE NEG (NEG); RBC,URINE RARE /HPF (0-2); SQUAMOUS EPITHELIAL CELL,UR FEW /LPF; UROBILINOGEN,URINE 0.2 mg/dL (0.2 mg/dL); WBC,URINE 0 /HPF (0-4)
[2019-03-11 13:10] VITALS: BP 131/86
== END 2019-03-11 13:10 | disposition home or self-care (01) ==
LOC: ER 10:29
DX: R10.13 Epigastric pain (principal); R19.7 Diarrhea, unspecified; R74.8 Abnormal levels of other serum enzymes; I10 Essential (primary) hypertension; K58.9 Irritable bowel syndrome, unspecified; F17.210 Nicotine dependence, cigarettes, uncomplicated; Z98.890 Other specified postprocedural states; Z98.51 Tubal ligation status
CPT/HCPCS: 36415; 74018; 80053; 81001; 81025; 83690; 85025; 99285

== ENCOUNTER 2019-06-07 00:43 | Emergency (ER) | payer OTHER ==
[~2019-06-07] VITALS: Ht 165.1 cm; Wt 98.0 kg
[2019-06-07 00:55] VITALS: BP 158/62
[2019-06-07] MEDS ORDERED: IBUPROFEN 600 MG TABLET. PO ONE (01:15)
[2019-06-07] MEDS ORDERED: HYDROcodone/APAP 5/325MG 1 TAB TABLET PO ONE (01:15)
[2019-06-07] MEDS ORDERED: HYDR-3165 PO (01:19)
[2019-06-07] MEDS ORDERED: MELO7.5T29 PO (01:19)
--- NOTE | 2019-06-07 01:19 | PHYS DOC ---
Past History Past Medical History: Dementia, Hypertension, IBS Past Surgical History: , Tubal ligation, Other Additional Past Surgical Histo: L KNEE, WISDOM TEETH, ECTOPIC Smoking: Cigarettes, Less than 1pk/day Alcohol Use: None Drug Use: Marijuana Adult General Chief Complaint Chief Complaint: UPPER EXTREMITY INJURY HPI HPI Patient is a 28-year-old female presents with a burn to her left wrist. This happened at approximately 10:30 tonight. She was at work, putting grease in solid form about to go into the fryer for making doughnuts when his grease slid in to the already hot oil. Some of this hot oil splashed up onto her wrist. There was no other burn. No smoke inhalation. No numbness or tingling. Her last tetanus vaccine was in 2014. No pain medicine has been taken at this time.[] Review of Systems Review of Systems Constitutional: Denies fever or chills [] Eyes: Denies change in visual acuity, redness, or eye pain [] HENT: Denies nasal congestion or sore throat [] Respiratory: Denies cough or shortness of breath [] Cardiovascular: No chest pain or palpitations[] GI: Denies abdominal pain, nausea, vomiting, bloody stools or diarrhea [] : Denies dysuria or hematuria [] Musculoskeletal: Denies back pain or joint pain [] Integument: Denies rash, see history of present illness[] Neurologic: Denies headache, focal weakness or sensory changes [] Endocrine: Denies polyuria or polydipsia [] All other systems were reviewed and found to be within normal limits, except as documented in this note. Allergies Allergies Allergies Coded Allergies Type Severity Reaction Last Updated Verified No Known Drug Allergies 01/07/14 No Physical Exam Physical Exam Constitutional: Well developed, well nourished, no acute distress, non-toxic appearance. [] HENT: Normocephalic, atraumatic, bilateral external ears normal, oropharynx moist, no oral exudates, nose normal. [] Eyes: PERRLA, EOMI, conjunctiva normal, no discharge. [] Neck: Normal range of motion, no tenderness, supple, no stridor. [] Cardiovascular:Heart rate regular rhythm, no murmur [] Lungs & Thorax: Bilateral breath sounds clear to auscultation [] Abdomen: Not examined. [] Skin: Warm, dry, erythema in a 5 x 5 cm region left volar wrist, there is a 1 cm x 0.5 cm blister towards the ulnar aspect. There is no circumferential burn. FDS, FDP, and extensor mechanisms are intact. She is distally neurovascularly intact. Capillary refill is less than 2 seconds.[] Back: No tenderness, no CVA tenderness. [] Extremities: No tenderness, no cyanosis, no clubbing, ROM intact, no edema. [] Neurologic: Alert and oriented X 3, normal motor function, normal sensory function, no focal deficits noted. [] Psychologic: Affect normal, judgement normal, mood normal. [] Current Patient Data Vital Signs Vital Signs Date Time Temp Pulse Resp B/P (MAP) Pulse Ox O2 Delivery O2 Flow Rate FiO2 06/07/19 00:55 98.2 98 18 97 Room Air EKG EKG [] Radiology/Procedures Radiology/Procedures [] Course & Med Decision Making Course & Med Decision Making Pertinent Labs and Imaging studies reviewed. (See chart for details) ED course: Patient arrived, was placed in bed, and tolerated exam well. She was given pain medication. Findings and plan were discussed with patient and family who voiced understanding. All questions were answered. She was discharged in improved condition. Medical decision making: Patient with a partial-thickness burn on her left wrist, less than 1% body surface area. No evidence of neurologic or vascular compromise. No evidence of an infection. Her tetanus vaccine status is up-to-date.[] Dragon Disclaimer Dragon Disclaimer This electronic medical record was generated, in whole or in part, using a voice recognition dictation system. Departure Departure: Impression: Primary Impression: Partial thickness burn of left wrist Disposition: 01 HOME, SELF-CARE Condition: IMPROVED Referrals: CARLTON MCGRATH MD (PCP) Follow-up in 2 days Patient Instructions: Burn Care Additional Instructions: Keep the area clean and dry. Follow-up with your regular doctor in 2 days. Return to the ER if worsening pain, purulent drainage, or any other concerns. Scripts Hydrocodone Bit/Acetaminophen (NORCO 5-325 TABLET) 1 Each Tablet 1 TAB PO Q4-6HRS for severe pain, #20 TAB Prov: ELIZABETH REDMAN DO 06/07/19 Meloxicam (MELOXICAM) 7.5 Mg Tablet 7.5 MG PO DAILY for PAIN, #20 TAB Prov: ELIZABETH REDMAN DO 06/07/19 Problem Qualifiers Primary Impression: Partial thickness burn of left wrist Encounter type: initial encounter Qualified Codes: T23.272A - Burn of second degree of left wrist, initial encounter ELIZABETH REDMAN DO Jun 07, 2019 01:19
== END 2019-06-07 01:30 | disposition home or self-care (01) ==
LOC: ER 00:43
DX: T23.272A Burn of second degree of left wrist, initial encounter (principal); T31.0 Burns involving less than 10% of body surface; F03.90 Unspecified dementia, unspecified severity, without behavioral disturbance, psychotic disturbance, mood disturbance, and anxiety; I10 Essential (primary) hypertension; K58.9 Irritable bowel syndrome, unspecified; F17.210 Nicotine dependence, cigarettes, uncomplicated; X10.2XXA Contact with fats and cooking oils, initial encounter; Y93.G3 Activity, cooking and baking; Y92.89 Other specified places as the place of occurrence of the external cause; Y99.0 Civilian activity done for income or pay
CPT/HCPCS: 99283

== ENCOUNTER 2019-06-15 15:43 | Emergency (ER) | payer BC, OTHER ==
[~2019-06-15] VITALS: Ht 165.1 cm; Wt 96.7 kg
[~2019-06-15 15:43] MED LIST changes: +MELO7.5T29 PO
[2019-06-15 15:50] VITALS: BP 161/91
[2019-06-15] MEDS ORDERED: KETOROLAC 60 MG/2 ML VIAL. IM ONE (16:00)
[2019-06-15] MEDS ORDERED: KETO10TA PO (16:03)
--- NOTE | 2019-06-15 16:04 | PHYS DOC ---
Past History Past Medical History: Dementia, Hypertension, IBS Past Surgical History: , Tubal ligation, Other Additional Past Surgical Histo: L KNEE, WISDOM TEETH, ECTOPIC Smoking: Cigarettes, Less than 1pk/day Alcohol Use: None Drug Use: Marijuana Adult General Chief Complaint Chief Complaint: TOOTH ACHE OR PAIN [facility] HPI Patient is a 28-year-old otherwise healthy female presents with a toothache. She states she is seen a dentist and been started on antibiotics but cannot get control of her pain. She is scheduled to see an oral surgeon to have it extracted. She denies any facial swelling or redness. She's not had any trouble opening her mouth or swallowing food.[] Review of Systems Review of Systems Constitutional: Denies fever or chills [] Eyes: Denies change in visual acuity, redness, or eye pain [] HENT: Dental pain as described in the history of present illness[] Respiratory: Denies cough or shortness of breath [] Cardiovascular: No additional information not addressed in HPI [] GI: Denies abdominal pain, nausea, vomiting, bloody stools or diarrhea [] : Denies dysuria or hematuria [] Musculoskeletal: Denies back pain or joint pain [] Integument: Denies rash or skin lesions [] Neurologic: Denies headache, focal weakness or sensory changes [] Endocrine: Denies polyuria or polydipsia [] All other systems were reviewed and found to be within normal limits, except as documented in this note. Current Medications Current Medications Current Medications Medications (Trade) Dose Ordered Sig/Kirk Start Time Stop Time Status Last Admin Dose Admin Ketorolac Tromethamine (Toradol Im) 60 mg 1X ONCE 06/15/19 16:00 06/15/19 16:01 Allergies Allergies Allergies Coded Allergies Type Severity Reaction Last Updated Verified No Known Drug Allergies 01/07/14 No Physical Exam Physical Exam Constitutional: Well developed, well nourished, no acute distress, non-toxic appearance. [] HENT: Normocephalic, atraumatic, bilateral external ears normal, oropharynx moist, no oral exudates, nose normal, she has widespread dental decay with significant decay on the right lower first molar no significant surrounding gingival erythema or abscess. [] Eyes: PERRLA, EOMI, conjunctiva normal, no discharge. [] Neck: Normal range of motion, no tenderness, supple, no stridor. [] Cardiovascular:Heart rate regular rhythm, no murmur [] Lungs & Thorax: Bilateral breath sounds clear to auscultation [] Abdomen: Bowel sounds normal, soft, no tenderness, no masses, no pulsatile masses. [] Skin: Warm, dry, no erythema, no rash. [] Psychologic: Anxious. [] EKG EKG [] Radiology/Procedures Radiology/Procedures [] Course & Med Decision Making Course & Med Decision Making Pertinent Labs and Imaging studies reviewed. (See chart for details) [] Dragon Disclaimer Dragon Disclaimer This electronic medical record was generated, in whole or in part, using a voice recognition dictation system. Departure Departure: Impression: Primary Impression: Pain, dental Disposition: HOME, SELF-CARE Condition: STABLE Referrals: CARLTON MCGRATH MD (PCP) Patient Instructions: Toothache-Brief Additional Instructions: Follow with oral surgeon as scheduled Scripts Ketorolac Tromethamine (KETOROLAC TROMETHAMINE) 10 Mg Tablet 1 TAB PO PRN Q6HRS for pain, #20 TAB Prov: SALVADOR ROJAS DO 06/15/19 SALVADOR ROJAS DO Jun 15, 2019 16:04
== END 2019-06-15 16:13 | disposition home or self-care (01) ==
LOC: ER 15:43
DX: K02.9 Dental caries, unspecified (principal); I10 Essential (primary) hypertension; K58.9 Irritable bowel syndrome, unspecified; F17.210 Nicotine dependence, cigarettes, uncomplicated
CPT/HCPCS: 96372; 99283; J1885

== ENCOUNTER 2019-06-23 14:19 | Emergency (ER) | payer BC ==
[~2019-06-23] VITALS: Ht 165.1 cm; Wt 96.7 kg
[~2019-06-23 14:19] MED LIST changes: +KETO10TA PO
[2019-06-23 14:20] VITALS: BP 133/85
[2019-06-23] MEDS ORDERED: LIDO15SO2 MM (14:36)
--- NOTE | 2019-06-23 14:36 | PHYS DOC ---
Past History Past Medical History: Anxiety, Bipolar, Depression, Diabetes, Hypertension, IBS Past Surgical History: , Tubal ligation, Other Additional Past Surgical Histo: L KNEE, WISDOM TEETH, ECTOPIC Smoking: Cigarettes, Less than 1pk/day Alcohol Use: None Drug Use: None Adult General Chief Complaint Chief Complaint: DENTAL PROBLEM HPI HPI Patient is a 28-year-old female who presents with complaint of right-sided lower jaw pain after tooth extraction last week. Patient has been seen for this on multiple occasions and is prescribed Toradol for the pain. She states that she has seen her dentist twice who has told her to take ibuprofen and Tylenol but she states those don't help. Patient is had no fever.[] Review of Systems Review of Systems Constitutional: Denies fever or chills [] HENT: Mouth/dental pain[] Respiratory: Denies cough or shortness of breath [] Cardiovascular: No additional information not addressed in HPI [] Neurologic: Denies headache, focal weakness or sensory changes [] Allergies Allergies Allergies Coded Allergies Type Severity Reaction Last Updated Verified No Known Drug Allergies 01/07/14 No Physical Exam Physical Exam Constitutional: Well developed, well nourished, no acute distress, non-toxic appearance. [] HENT: Normocephalic, atraumatic, there is mild swelling of the gums in the area of tooth extraction. [] Eyes: PERRLA, EOMI, conjunctiva normal, no discharge. [] Cardiovascular:Heart rate regular rhythm, no murmur [] Lungs & Thorax: Clear to auscultation bilaterally[] EKG EKG [] Radiology/Procedures Radiology/Procedures [] Course & Med Decision Making Course & Med Decision Making Pertinent Labs and Imaging studies reviewed. (See chart for details) [] Dragon Disclaimer Dragon Disclaimer This electronic medical record was generated, in whole or in part, using a voice recognition dictation system. Departure Departure: Impression: Primary Impression: Pain following oral surgery Disposition: 01 HOME, SELF-CARE Condition: STABLE Referrals: CARLTON MCGRATH MD (PCP) Patient Instructions: Pain Relief Preoperatively and Postoperatively Scripts Lidocaine HCl (Lidocaine HCl Viscous) 15 Ml Solution 1 ML MM Q2HR PRN for mouth pain, #100 ML Prov: JUANITA PARMAR Jr. DO 06/23/19 JUANITA PARMAR Jr. DO Jun 23, 2019 14:36
== END 2019-06-23 14:39 | disposition home or self-care (01) ==
LOC: ER 14:19
DX: G89.18 Other acute postprocedural pain (principal); K08.89 Other specified disorders of teeth and supporting structures; R68.84 Jaw pain; E11.9 Type 2 diabetes mellitus without complications; I10 Essential (primary) hypertension; F17.210 Nicotine dependence, cigarettes, uncomplicated; Z98.818 Other dental procedure status
CPT/HCPCS: 99282

== ENCOUNTER 2019-06-26 11:49 | Emergency (ER) | payer BC ==
[~2019-06-26] VITALS: Ht 165.1 cm; Wt 96.7 kg
[~2019-06-26 11:49] MED LIST changes: +LIDO15SO2 MM
[2019-06-26 11:58] VITALS: BP 133/74
[2019-06-26] MEDS ORDERED: DOLOBID PO (12:24)
--- NOTE | 2019-06-26 12:24 | PHYS DOC ---
Past History Past Medical History: Anxiety, Bipolar, Depression, Diabetes, Hypertension, IBS Past Surgical History: , Tubal ligation, Other Additional Past Surgical Histo: L KNEE, WISDOM TEETH, ECTOPIC Smoking: Cigarettes, Less than 1pk/day Alcohol Use: None Drug Use: None Adult General Chief Complaint Chief Complaint: SORE THROAT HPI HPI Patient is a 28-year-old female presents complaining of right lower dental pain where she had an extraction of the tooth performed approximately a week ago. She has been seen multiple times for this. She has been prescribed clindamycin which she has not yet filled. She is getting no relief with lidocaine gel. Symptoms are moderate to severe in intensity. She also reports a sore throat. This is been going on for the past day or so. Symptoms are moderate in intensity. Increased pain with swallowing. No difficulty breathing. No fever. No neck stiffness. No headache. No relief with her current medication.[] Review of Systems Review of Systems Constitutional: Denies fever or chills [] Eyes: Denies change in visual acuity, redness, or eye pain [] HENT: See history of present illness[] Respiratory: Denies cough or shortness of breath [] Cardiovascular: No chest pain or palpitations[] GI: Denies abdominal pain, nausea, vomiting, bloody stools or diarrhea [] : Denies dysuria or hematuria [] Musculoskeletal: Denies back pain or joint pain [] Integument: Denies rash or skin lesions [] Neurologic: Denies headache, focal weakness or sensory changes [] Endocrine: Denies polyuria or polydipsia [] All other systems were reviewed and found to be within normal limits, except as documented in this note. Allergies Allergies Allergies Coded Allergies Type Severity Reaction Last Updated Verified No Known Drug Allergies 01/07/14 No Physical Exam Physical Exam Constitutional: Well developed, well nourished, no acute distress, non-toxic appearance. [] HENT: Normocephalic, atraumatic, bilateral external ears normal, oropharynx moist, no oral exudates, tooth #31 has been extracted. It appears to have healing granulation tissue present. There is no abscess noted. Uvula is midline. There is no tonsillar swelling or exudate. No swelling of the base of the floor of the mouth. Nose normal. [] Eyes: PERRLA, EOMI, conjunctiva normal, no discharge. [] Neck: Normal range of motion, no tenderness, supple, no stridor. No cervical lymphadenopathy is present. No nuchal rigidity [] Cardiovascular:Heart rate regular rhythm, no murmur [] Lungs & Thorax: Bilateral breath sounds clear to auscultation [] Abdomen: Bowel sounds normal, soft, no tenderness, no masses, no pulsatile masses. No splenomegaly[] Skin: Warm, dry, no erythema, no rash. [] Back: No tenderness, no CVA tenderness. [] Extremities: No tenderness, no cyanosis, no clubbing, ROM intact, no edema. [] Neurologic: Alert and oriented X 3, normal motor function, normal sensory function, no focal deficits noted. [] Psychologic: Affect normal, judgement normal, mood normal. [] Current Patient Data Vital Signs Vital Signs Date Time Temp Pulse Resp B/P (MAP) Pulse Ox O2 Delivery O2 Flow Rate FiO2 06/26/19 11:58 97.7 90 16 97 Room Air EKG EKG [] Radiology/Procedures Radiology/Procedures [] Course & Med Decision Making Course & Med Decision Making Pertinent Labs and Imaging studies reviewed. (See chart for details) ED course: Patient arrived, was placed in bed, and tolerated exam well. After the exam, findings and plan were discussed with patient and family who voiced understanding. All questions were answered. She was discharged in improved condition. Medical decision making: Patient here for pain control post dental extraction. There does not appear to be any evidence of an infection, dry socket, nor other significant problems such as O exam Gen. There is no evidence of peritonsillar abscess nor pharyngitis. However, patient has a prescription for clindamycin which should treat strep pharyngitis if it is present. Have instructed patient to fill that prescription. Will prescribe a different NSAID for an attempted pain management. Do not believe that narcotic pain medicines are indicated at this time.[] Dragon Disclaimer Dragon Disclaimer This electronic medical record was generated, in whole or in part, using a voice recognition dictation system. Departure Departure: Impression: Primary Impression: Pain, dental Additional Impression: Sore throat Disposition: HOME, SELF-CARE Condition: IMPROVED Referrals: CARLTON MCGRATH MD (PCP) Follow-up in 2 days Patient Instructions: Pain Relief Preoperatively and Postoperatively, Sore Throat Additional Instructions: Drink plenty of fluids. Stop smoking! Fill and take the clindamycin prescription as instructed. This will cover both strep pharyngitis and a dental infection. Follow-up with your regular doctor and dentist in 2 days. Take the pain medication as prescribed. Return to the ER if worsening pain, fever of more than 101, increased difficulty swallowing or breathing, or any other concerns. Scripts [Dolobid] No Conflict Check 500 MG PO TID for pain for 10 Days, TAB Prov: ELIZABETH REDMAN DO 06/26/19 Problem Qualifiers ELIZABETH REDMAN DO Jun 26, 2019 12:24
== END 2019-06-26 12:30 | disposition home or self-care (01) ==
LOC: ER 11:49
DX: K08.89 Other specified disorders of teeth and supporting structures (principal); J02.9 Acute pharyngitis, unspecified; E11.9 Type 2 diabetes mellitus without complications; I10 Essential (primary) hypertension; K58.9 Irritable bowel syndrome, unspecified; F17.210 Nicotine dependence, cigarettes, uncomplicated
CPT/HCPCS: 99283

== ENCOUNTER 2019-07-24 12:53 | Emergency (ER) | payer BC ==
[~2019-07-24 12:53] MED LIST changes: +DOLOBID PO
== END 2019-07-24 13:07 | disposition home or self-care (01) ==
LOC: ER 12:53
DX: K08.89 Other specified disorders of teeth and supporting structures (principal); Z53.21 Procedure and treatment not carried out due to patient leaving prior to being seen by health care provider

== ENCOUNTER 2019-07-30 17:01 | Emergency (ER) | payer BC ==
[~2019-07-30] VITALS: Ht 165.1 cm; Wt 96.7 kg
[2019-07-30] MEDS ORDERED: HYDROcodone/APAP 7.5/325MG 1 TAB TABLET PO ONE (17:15)
[2019-07-30] MEDS ORDERED: HYDR-3165 PO (17:16)
--- NOTE | 2019-07-30 17:16 | PHYS DOC ---
Past History Past Medical History: Anxiety, Bipolar, Depression, Diabetes, Hypertension, IBS Past Surgical History: , Tubal ligation, Other Additional Past Surgical Histo: L KNEE, WISDOM TEETH, ECTOPIC Smoking: Cigarettes, Less than 1pk/day Alcohol Use: None Drug Use: None Adult General Chief Complaint Chief Complaint: DENTAL PROBLEM HPI HPI Patient is a 29-year-old female who presents with complaint of left-sided dental pain. Patient had dental extraction recently and has had dry socket syndrome. Patient states that she is not able to get into the dentist until early next week. She rates pain a 9 out of 10.[] Review of Systems Review of Systems Constitutional: Denies fever or chills [] HENT: Positive dental pain[] Respiratory: Denies cough or shortness of breath [] Cardiovascular: No additional information not addressed in HPI [] Allergies Allergies Allergies Coded Allergies Type Severity Reaction Last Updated Verified No Known Drug Allergies 07/30/19 No Physical Exam Physical Exam Constitutional: Well developed, well nourished, no acute distress, non-toxic appearance. [] HENT: Normocephalic, atraumatic, bilateral external ears normal, oropharynx moist, no oral exudates, nose normal. [] Cardiovascular:Heart rate regular rhythm, no murmur [] Lungs & Thorax: Bilateral breath sounds clear to auscultation [] EKG EKG [] Radiology/Procedures Radiology/Procedures [] Course & Med Decision Making Course & Med Decision Making Pertinent Labs and Imaging studies reviewed. (See chart for details) [] Dragon Disclaimer Dragon Disclaimer This electronic medical record was generated, in whole or in part, using a voice recognition dictation system. Departure Departure: Impression: Primary Impression: Dry tooth socket Disposition: 01 HOME, SELF-CARE Condition: STABLE Referrals: CARLTON MCGRATH MD (PCP) Patient Instructions: Dental Dry Socket Scripts Hydrocodone Bit/Acetaminophen (NORCO 5-325 TABLET) 1 Each Tablet 1-2 TAB PO PRN Q6HRS PRN for PAIN, #12 TAB 0 Refills Prov: JUANITA PARMAR Jr. DO 07/30/19 JUANITA PARMAR Jr. DO Jul 30, 2019 17:16
[2019-07-30] MEDS ORDERED: HYDROcodone/APAP 7.5/325MG 1 TAB TABLET ONE (17:18)
[2019-07-30 17:24] VITALS: BP 139/87
== END 2019-07-30 17:25 | disposition home or self-care (01) ==
LOC: ER 17:01
DX: M27.3 Alveolitis of jaws (principal); E11.9 Type 2 diabetes mellitus without complications; I10 Essential (primary) hypertension; K58.9 Irritable bowel syndrome, unspecified; F17.210 Nicotine dependence, cigarettes, uncomplicated
CPT/HCPCS: 99283

== ENCOUNTER 2019-08-05 07:21 | Emergency (ER) | payer BC ==
--- NOTE | 2019-08-05 08:04 | PHYS DOC ---
Past History Past Medical History: Anxiety, Bipolar, Depression, Diabetes, Hypertension, IBS Past Surgical History: , Tubal ligation, Other Additional Past Surgical Histo: L KNEE, WISDOM TEETH, ECTOPIC , right index finger, R ovarian cys Smoking: Cigarettes, Less than 1pk/day Alcohol Use: None Drug Use: None Adult General Chief Complaint Chief Complaint: Cough HPI HPI 29-year-old female presents with 4-5 day history of cough, congestion, malaise, intermittent nausea, and mild diarrhea. The patient was seen at urgent care on Sunday and diagnosed with viral illness. She was given steroids. She tells me that these didn't seem to help so she couldn't cough up some phlegm. Her cough does not seem to be productive today. She has only had one episode of diarrhea. She has not had a chest x-ray. She isn't sure if she has had a fever but she has had chills. Review of Systems Review of Systems Constitutional: Chills[] Eyes: Denies change in visual acuity, redness, or eye pain [] HENT: nasal congestion [] Respiratory: Cough with mild shortness of breath [] Cardiovascular: No additional information not addressed in HPI [] GI: Denies abdominal pain, nausea, vomiting, bloody stools or diarrhea [] : Denies dysuria or hematuria [] Musculoskeletal: Denies back pain or joint pain [] Integument: Denies rash or skin lesions [] Neurologic: Denies headache, focal weakness or sensory changes [] Endocrine: Denies polyuria or polydipsia [] All other systems were reviewed and found to be within normal limits, except as documented in this note. Allergies Allergies Allergies Coded Allergies Type Severity Reaction Last Updated Verified No Known Drug Allergies 08/05/19 No Physical Exam Physical Exam Constitutional: Well developed, obese, well nourished, no acute distress, non- toxic appearance. [] HENT: Normocephalic, atraumatic, bilateral external ears normal, oropharynx moist, no oral exudates, nose congested[] Eyes: PERRLA, EOMI, conjunctiva normal, no discharge. [] Neck: Normal range of motion, no tenderness, supple, no stridor. [] Cardiovascular:Heart rate regular rhythm, no murmur [] Lungs & Thorax: Bilateral breath sounds diminished but clear to auscultation [] Abdomen: Bowel sounds normal, soft, no tenderness, no masses, no pulsatile masses. [] Skin: Warm, dry, no erythema, no rash. [] Back: No tenderness, no CVA tenderness. [] Extremities: No tenderness, no cyanosis, no clubbing, ROM intact, no edema. [] Neurologic: Alert and oriented X 3, normal motor function, normal sensory function, no focal deficits noted. [] Psychologic: Affect normal, judgement normal, mood normal. [] Current Patient Data Vital Signs Vital Signs Date Time Temp Pulse Resp B/P (MAP) Pulse Ox O2 Delivery O2 Flow Rate FiO2 08/05/19 07:37 97.8 94 18 97 Room Air EKG EKG [] Radiology/Procedures Radiology/Procedures [] Impressions: CHEST PA LATERAL History: Cough, bronchospasm Comparison: None. Findings: Frontal and lateral views of the chest were obtained. The cardiomediastinal silhouette is normal. Pulmonary vasculature is normal. The lungs are clear. No pleural effusion or pneumothorax is seen. There is no acute bone abnormality. IMPRESSION: No acute cardiopulmonary process. Electronically signed by: Amaury Rivas MD (08/05/2019 8:08 AM) [facility] DICTATED AND SIGNED BY: AMAURY RIVAS MD DATE: 08/05/19 0808 CC: MESHA DIXON DO; CARLTON MCGRATH MD ~ Course & Med Decision Making Course & Med Decision Making Pertinent Labs and Imaging studies reviewed. (See chart for details) The patient's chest x-ray is negative for acute findings. Her continued coughing is likely made worse by her smoking. I have advised that she stop smoking. I don't believe there is anything else to do this first treatment at this time. She will just have to write out this illness. She is stable for discharge at this time. [] Dragon Disclaimer Dragon Disclaimer This electronic medical record was generated, in whole or in part, using a voice recognition dictation system. Departure Departure: Impression: Primary Impression: Tobacco abuse Additional Impression: Bronchitis due to tobacco use Disposition: HOME, SELF-CARE Condition: STABLE Referrals: CARLTON MCGRATH MD (PCP) Patient Instructions: Bronchitis, [id number] Problem Qualifiers MESHA DIXON DO Aug 05, 2019 08:04
--- NOTE | 2019-08-05 08:11 | RAD ---
CHEST PA LATERAL History: Cough, bronchospasm Comparison: None. Findings: Frontal and lateral views of the chest were obtained. The cardiomediastinal silhouette is normal. Pulmonary vasculature is normal. The lungs are clear. No pleural effusion or pneumothorax is seen. There is no acute bone abnormality. IMPRESSION: No acute cardiopulmonary process. Electronically signed by: Iglesia James MD (08/05/2019 8:08 AM) [facility]
[2019-08-05 08:50] VITALS: BP 119/82
== END 2019-08-05 08:49 | disposition home or self-care (01) ==
LOC: ER 07:21
DX: T65.221A Toxic effect of tobacco cigarettes, accidental (unintentional), initial encounter (principal); J68.0 Bronchitis and pneumonitis due to chemicals, gases, fumes and vapors; F31.9 Bipolar disorder, unspecified; F41.9 Anxiety disorder, unspecified; E11.9 Type 2 diabetes mellitus without complications; I10 Essential (primary) hypertension; K58.9 Irritable bowel syndrome, unspecified; F17.210 Nicotine dependence, cigarettes, uncomplicated; Y92.89 Other specified places as the place of occurrence of the external cause
CPT/HCPCS: 71046; 99284

== ENCOUNTER 2019-11-20 14:55 | Emergency (ER) | payer SELFPAY ==
[~2019-11-20] VITALS: Ht 165.1 cm; Wt 101.4 kg
[~2019-11-20 14:55] MED LIST changes: -LIDO15SO2 MM; +LIDO20SO10 MM
[2019-11-20 15:06] VITALS: BP 161/92
--- NOTE | 2019-11-20 15:23 | PHYS DOC ---
Past History Past Medical History: Ectopic Past Surgical History: , Other Additional Past Surgical Histo: right knee, right index finger surgery Smoking: Cigarettes, Less than 1pk/day Alcohol Use: None Drug Use: None General Adult EDM: Chief Complaint: BACK PAIN OR INJURY HPI: HPI: 29-year-old female presents with chronic back pain. She saw her primary care physician 2 days ago who did x-rays and gave her steroid injection and Norflex. It helped for a couple hours, but the patient is continued to have discomfort. She states that they told her to come the emergency room. She does have a referral to see a spinal surgeon in a few weeks. Patient denies any new complaints. Review of Systems: Review of Systems: Constitutional: Denies fever or chills Eyes: Denies change in visual acuity HENT: Denies nasal congestion or sore throat Respiratory: Denies cough or shortness of breath Cardiovascular: Denies chest pain or edema GI: Denies abdominal pain, nausea, vomiting, bloody stools or diarrhea : Denies dysuria Musculoskeletal: Low back pain Integument: Denies rash Neurologic: Denies headache, focal weakness or sensory changes Endocrine: Denies polyuria or polydipsia Lymphatic: Denies swollen glands Psychiatric: Denies depression or anxiety Heart Score: Risk Factors: Risk Factors: DM, Current or recent (<one month) smoker, HTN, HLP, family history of CAD, obesity. Risk Scores: Score 0 - 3: 2.5% MACE over next 6 weeks - Discharge Home Score 4 - 6: 20.3% MACE over next 6 weeks - Admit for Clinical Observation Score 7 - 10: 72.7% MACE over next 6 weeks - Early Invasive Strategies Allergies: Allergies: Allergies Coded Allergies Type Severity Reaction Last Updated Verified No Known Drug Allergies 08/05/19 No Physical Exam: PE: Constitutional: Well developed, well nourished, no acute distress, non-toxic appearance. [] HENT: Normocephalic, atraumatic, bilateral external ears normal, oropharynx moist, no oral exudates, nose normal. [] Eyes: PERRLA, EOMI, conjunctiva normal, no discharge. [] Neck: Normal range of motion, no tenderness, supple, no stridor. [] Cardiovascular:Heart rate regular rhythm, no murmur [] Lungs & Thorax: Bilateral breath sounds clear to auscultation [] Abdomen: Bowel sounds normal, soft, no tenderness, no masses, no pulsatile masses. [] Skin: Warm, dry, no erythema, no rash. [] Back: No tenderness, no CVA tenderness. [] Extremities: No tenderness, no cyanosis, no clubbing, ROM intact, no edema. [] Neurologic: Alert and oriented X 3, normal motor function, normal sensory function, no focal deficits noted. [] Psychologic: Affect normal, judgement normal, mood normal. [] Current Patient Data: Vital Signs: Vital Signs Date Time Temp Pulse Resp B/P (MAP) Pulse Ox O2 Delivery O2 Flow Rate FiO2 11/20/19 15:06 98.4 95 18 161/92 (115) Room Air EKG: EKG: [] Radiology/Procedures: Radiology/Procedures: [] Course & Med Decision Making: Course & Med Decision Making Pertinent Labs and Imaging studies reviewed. (See chart for details) This appears to be a chronic condition. The patient has no acute complaints. I explained to her that her primary care physician would have to manage any medication changes beyond ibuprofen and Tylenol. Patient states verbal u nderstanding. She is medically stable for discharge. [] Dragon Disclaimer: Dragon Disclaimer: This electronic medical record was generated, in whole or in part, using a voice recognition dictation system. Departure Departure: Impression: Primary Impression: Low back pain Qualified Codes: M54.40 - Lumbago with sciatica, unspecified side; G89.29 - Other chronic pain Additional Impression: Encounter for medical screening examination Disposition: HOME, SELF-CARE Condition: STABLE Referrals: CARLTON MCGRATH MD (PCP) Patient Instructions: Medical Screening Exam MESHA DIXON DO Nov 20, 2019 15:23
== END 2019-11-20 15:20 | disposition home or self-care (01) ==
LOC: ER 14:55
DX: M54.40 Lumbago with sciatica, unspecified side (principal); G89.29 Other chronic pain; F17.210 Nicotine dependence, cigarettes, uncomplicated
CPT/HCPCS: 99281

== ENCOUNTER 2020-02-29 10:51 | Emergency (ER) | payer OTHER | END 2020-02-29 12:17 | disposition left against medical advice (07) | LOC: ER 10:51 | DX: S89.92XA Unspecified injury of left lower leg, initial encounter (principal); Z53.21 Procedure and treatment not carried out due to patient leaving prior to being seen by health care provider; X58.XXXA Exposure to other specified factors, initial encounter; Y93.89 Activity, other specified; Y92.89 Other specified places as the place of occurrence of the external cause; Y99.8 Other external cause status ==

== ENCOUNTER 2020-11-29 20:12 | Emergency (ER) | payer OTHER ==
[~2020-11-29] VITALS: Ht 165.1 cm; Wt 94.3 kg
--- NOTE | 2020-11-29 20:41 | PHYS DOC ---
Past History Past Medical History: Depression, Diabetes, Ectopic , Hypertension Past Surgical History: , Other Additional Past Surgical Histo: right knee, right index finger surgery Smoking: Cigarettes, Less than 1pk/day Alcohol Use: None Drug Use: None General Adult EDM: Chief Complaint: LOWER EXT PAIN HPI: HPI: ";.. I mess up my Llt ACL.. and to get surgery sunday.. but I am out of pain meds. .. my primary will not write for more.. the surgery will not return my call...".. " I got to have some relief tonight .. until my surgery doctor calls me back..." Patient is a 30 year old female who presents with above hx and complaints of Lt knee ACL injury. Pt. has scheduled surgery on Wednesday 12/06. with Dr. Reeves. Pt. follows with Dr. Zavala as primary. Patient has been noted to have frequent visits for pain issues. Patient apparently has used up her previous pain prescriptions by surgery. Patient states she has been compliant with use for leg brace ,elevation, ice packs as needed. Patient states she can no longer take ibuprofen because of the pending surgery. Patient states Tylenol [id number] has not been adequately relieving her pain. Review of Systems: Review of Systems: Constitutional: Denies fever or chills Eyes: Denies change in visual acuity HENT: Denies nasal congestion or sore throat Respiratory: Denies cough or shortness of breath Cardiovascular: Denies chest pain or edema GI: Denies abdominal pain, nausea, vomiting, bloody stools or diarrhea : Denies dysuria Musculoskeletal: Complains of left knee pain Integument: Denies rash Neurologic: Denies headache, focal weakness or sensory changes Endocrine: Denies polyuria or polydipsia Lymphatic: Denies swollen glands Psychiatric: Denies depression or anxiety Family History: Family History: Noncontributory to presentation Current Medications: Current Meds: See nursing for home meds Allergies: Allergies: Allergies Coded Allergies Type Severity Reaction Last Updated Verified No Known Drug Allergies 11/29/20 No Physical Exam: PE: Constitutional: Reports moderately acute distress, non-toxic appearance. [] HENT: Normocephalic, atraumatic, bilateral external ears normal, oropharynx moist, no oral exudates, nose normal. [] Eyes: PERRLA, EOMI, conjunctiva normal, no discharge. [] Neck: Normal range of motion, no tenderness, supple, no stridor. [] Cardiovascular:Heart rate regular rhythm, no murmur [] Lungs & Thorax: Bilateral breath sounds equal at apex with scattered wheezes on auscultation [] Abdomen: Bowel sounds normal, soft, no tenderness, no masses, no pulsatile masses. Abdomen scar Skin: Warm, dry, no erythema, no rash. [] Back: No tenderness, no CVA tenderness. [] Extremities: No tenderness, no cyanosis, no clubbing, ROM intact, no edema. Except findings in Lt Leg. Pt. wearing brace. Neurologic: Alert and oriented X 3, normal motor function, normal sensory function, no focal deficits noted. [] Psychologic: Affect anxious, judgement normal, mood normal. [] Current Patient Data: Vital Signs: Vital Signs Date Time Temp Pulse Resp B/P (MAP) Pulse Ox O2 Delivery O2 Flow Rate FiO2 11/29/20 20:18 98.4 84 18 147/84 (105) 98 Room Air EKG: EKG: [] Radiology/Procedures: Radiology/Procedures: declined[] Heart Score: C/O Chest Pain: N/A Risk Factors: Risk Factors: DM, Current or recent (<one month) smoker, HTN, HLP, family history of CAD, obesity. Risk Scores: Score 0 - 3: 2.5% MACE over next 6 weeks - Discharge Home Score 4 - 6: 20.3% MACE over next 6 weeks - Admit for Clinical Observation Score 7 - 10: 72.7% MACE over next 6 weeks - Early Invasive Strategies Course & Med Decision Making: Course & Med Decision Making Pertinent Labs and Imaging studies reviewed. (See chart for details) Advised the patient to elevate knee. Rest. Wear brace. Use ice packs as needed. Take Tylenol up to 1 g every 6 hours max. Advised further narcotic meds must be filled through her primary care or her surgeon. Advised patient would not write for prescription for home narcotic meds. Will give one dosage of Morphine here tonight, but further meds must be through her surgeon or her primary care. Did advise patient she appears to be may be having issues with narcotic dependence. This may have been from hx of multiple medical issues in past. Advised may need contact with pain center for input on other methods of pain control. Impression: 1. History of left ACL tear-surgery pending Wednesday 12/13 2. ED history somewhat consistent with narcotic seeking behaviors 3. Hx. of Chronic Pain [] Dragon Disclaimer: Dragon Disclaimer: This electronic medical record was generated, in whole or in part, using a voice recognition dictation system. Departure Departure: Referrals: MESHA ZAVALA (PCP) Tiffany Disclaimer This chart was dictated in whole or in part using Voice Recognition software in a busy, high-work load, and often noisy Emergency Department environment. It may contain unintended and wholly unrecognized errors or omissions. Dragon Disclaimer This chart was dictated in whole or in part using Voice Recognition software in a busy, high-work load, and often noisy Emergency Department environment. It may contain unintended and wholly unrecognized errors or omissions. MED YAN MD November 29, 2020 20:41
[2020-11-29] MEDS ORDERED: MORPHINE SULFATE 10 MG/ML SYRINGE. SQ ONE (21:15)
[2020-11-29 21:35] VITALS: BP 152/84
== END 2020-11-29 21:35 | disposition home or self-care (01) ==
LOC: ER 20:12
DX: M25.562 Pain in left knee (principal); G89.29 Other chronic pain; E11.9 Type 2 diabetes mellitus without complications; I10 Essential (primary) hypertension; F17.210 Nicotine dependence, cigarettes, uncomplicated; Z98.890 Other specified postprocedural states
CPT/HCPCS: 96372; 99283; J2270